=== PATIENT | female | born 1940 | race Caucasian/White ===

== ENCOUNTER → 2017-01-11 | Outpatient (CLI) | payer BC ==
[~2017-01-11] MED LIST: AMLO2.5T PO; AMT25 PO; AMX500 PO; ASPCH81X PO; ATOR-22 PO; CHOL20005 PO; CHON150C PO; DVN80 PO; GLUC10007 PO; GLUC1CAP35 PO; METO25TA3 PO; MIRO OPB; POLYSOL4 OP; RALO60TA30 PO
[2017-01-11 15:07] LABS: BLOOD UREA NITROGEN 16 mg/dl (7-18); CREATININE 0.71 mg/dl (0.60-1.20)
== END | disposition home or self-care (01) ==
LOC: C.LABBC 10:20
PROVIDERS: ATTEND Psychiatry & Neurology Neurology
DX: G51.8 Other disorders of facial nerve (principal); Z01.812 Encounter for preprocedural laboratory examination

== ENCOUNTER → 2017-01-13 | Outpatient (CLI) | payer BC ==
[~2017-01-13] MED LIST changes: +GADAVIST IV PRN
--- NOTE | 2017-01-13 11:57 | DIAGNOSTIC IMAGING REPORT ---
MRI brain BRAIN COMBO FOR TRIGEMINAL CLINICAL HISTORY: Trigeminal; facial NEURALGIA TECHNIQUE: Multi axial MRI acquisition COMPARISON STUDY: None FINDINGS: Moderate chronic small vessel change of aging. No evidence for an acute ischemic insult. No significant postcontrast enhancement. Ventricular system is midline. Basal cisterns are within normal limits. Sella and parasellar region are unremarkable. Internal auditory canals are unremarkable. IMPRESSION: Negative study for age. Mild chronic small vessel change of aging. Electronically signed by: Arash Schwarz M.D. 01/13/2017 11:55 AM Dictated Date/Time: 01/13/2017 11:40 AM
== END | disposition home or self-care (01) ==
LOC: C.MRIBC 10:21
PROVIDERS: ATTEND Psychiatry & Neurology Neurology
DX: G51.8 Other disorders of facial nerve (principal)

== ENCOUNTER → 2017-02-01 | Outpatient (CLI) | payer BC ==
[~2017-02-01] MED LIST changes: -GADAVIST IV PRN
[2017-02-01 10:50] LABS: URINE APPEARANCE CLEAR (CLEAR); URINE BILIRUBIN NEG (NEG); URINE COLOR YELLOW; URINE NITRITE NEG (NEG); UROBILINOGEN NEG (NEG)
[2017-02-01 11:10] LABS: MANUAL MICROSCOPIC REQUIRED? NO; REVIEW REQ? NO
[2017-02-07 13:10] LABS: ANTI-CENTROMERE AB <1.0 NEG AI (<1.0 NEG); ANTI-SS-A <1.0 NEG AI (<1.0 NEG); ANTI-SS-B <1.0 NEG AI (<1.0 NEG); DNA ds CRITHIDIA NEGATIVE (NEGATIVE); Sm Antibody <1.0 NEG AI (<1.0 NEG)
== END | disposition home or self-care (01) ==
LOC: C.LAB1850 09:11
PROVIDERS: ATTEND Internal Medicine Rheumatology
DX: G51.8 Other disorders of facial nerve (principal); R23.2 Flushing; G57.02 Lesion of sciatic nerve, left lower limb; R76.8 Other specified abnormal immunological findings in serum

== ENCOUNTER → 2017-04-27 | Day surgery (SDC) | payer BC ==
[2017-04-08 09:15] VITALS: Ht 154.9 cm; Wt 64.8 kg
[~2017-04-27] VITALS: Ht 154.9 cm; Wt 64.8 kg
[~2017-04-27] MED LIST changes: +500ML BSS 0.3ML EPI 1:1000PF IRRIG ONE; +ACETAMINOPHEN 325 MG TAB PO PRN; -AMT25 PO; +AMVISC PLUS 0.8ML SYRINGE INT OCU ONE; -AMX500 PO; +ATROPINE SULFATE 0.1 MG/ML 5ML SYR IV PRN; +AcetaZOLAMIDE 250 MG TAB PO SCH; +BETAXOLOL HCL 0.25% OP SUSP PER DROP CHARGE OPR SCH; +BRIMONIDINE TART 0.2% OP SOLN PER DROP CHARGE ONE; +BSS FLUSH ONE; -CHON150C PO; -DVN80 PO; +ENDOCOAT 0.85ML SYRINGE INT OCU ONE; +EpHEDrine SULFATE INJ 50 MG/ML AMP IV PRN; +EpINEphrine INJ 1MG/ML AMP 1 MG/ML AMP ONE; -GLUC10007 PO; +LACTATED RINGER'S 1000ML 500 ML IV SCH; +LIDOCAINE 4% OP SOLN DROP CHARGE ONE; +LIDOCAINE 4% OP SOLN DROP CHARGE OPR SCH; +LIDOCAINE HCL 1% MPF 2 ML VIAL ONE; +MIDAZOLAM HCL 1 MG/ML 2ML VIAL ONE; +MIX: 4ML BSS 1ML EPI 1:1000 PF INSTIL ONE; +MOXIFLOXACIN OPH SOLN PER DROP CHARGE ONE; +OCUCOAT 1 ML SOLN IO ONE; +POVIDONE-IODINE OP SOLN 30 ML BTL ONE; +PROPARACAINE 0.5% OP SOLN PER DROP CHARGE OPR SCH; +RALO60TA12 PO; -RALO60TA30 PO; +TOBRAMYCIN/DEXAMETHASONE OPH OINT PER APPLN CHARGE ONE
[2017-04-27] MEDS: PHENYLEPHRINE HCL 2.5% OP SOLN PER DROP CHARGE OPR SCH ×2 (07:21→07:26)
[2017-04-27] MEDS: CYCLOPENTOLATE HCL 1% OP SOLN PER DROP CHARGE OPR SCH ×2 (07:22→07:29)
[2017-04-27] MEDS: TROPICAMIDE 1% OP SOLN PER DROP CHARGE OPR SCH ×2 (07:22→07:28)
[2017-04-27] MEDS: MOXIFLOXACIN OPH SOLN PER DROP CHARGE OPR SCH ×2 (07:23→07:29)
--- NOTE | 2017-04-27 07:33 | History & Physical Bridge - SC ---
H&P Re-Evaluation Bridge Note: I have examined the patient, reviewed the History & Physical and in the interval since the performance of the History & Physical I have noted the following changes of clinical significance: No changes noted
--- NOTE | 2017-04-27 08:21 | Discharge Instructions-SurgCtr ---
Discharge Instructions Date of Service Apr 27, 2017. Visit Reason for Visit: Right Cataract Discharge Discharge Diagnosis / Problem: lens implant right eye Discharge Goals Goal(s): Improve function Activity Recommendations Activity Limitations: resume your previous activity Lifting Limitations: no more than 10 pounds Exercise/Sports Limitations: gradually increase as tolerated May Resume Sexual Activity: when tolerated Shower/Bathe: tomorrow Driving or Machine Use: resume 1 day after discharge Anesthesia . Post Anesthesia Instructions: If you have had General Anesthesia or IV Sedation: * Do not drive today. * Resume driving when surgeon permits. * Do not make important decisions or sign legal documents today. * Call surgeon for: 1. Temperature elevations greater than 101 degrees F. 2. Uncontrollable pain. 3. Excessive bleeding. 4. Persistent nausea and vomiting. 5. Medication intolerance (nausea, vomiting or rash). * For nausea and vomiting use only clear liquids such as: tea, soda, bouillon until nausea subsides, then gradually increase diet as tolerated. * If you have any concerns or questions, call your surgeon's office. If physician is unavailable and it is an emergency, call 911 or go to the nearest emergency room. . Instructions / Follow-Up Instructions / Follow-Up ACTIVITY RECOMMENDATIONS: * Light activities. * Mild irritation and blurred vision are common for the first few days. * You may walk outside, read, watch television. * Redness around the white part of the eye is common. MEDICATIONS: Resume previous medications unless instructed otherwise by your surgeon. * Take white Diamox (Acetazolamide) tablet at 1 pm today. Start all eye drops at 1 pm today: * Eye drops (today and tomorrow): Durezol - one drop in operative eye every 3 hours while awake Ofloxacin - one drop in operative eye every 3 hours while awake SPECIAL CARE INSTRUCTIONS: * Tape plastic shield over eye to sleep at night. Call your doctor at with any concerns or problems. FOLLOW UP VISIT: Follow-up with Dr Larsen at [facility] office as scheduled. Diet Recommendations Home Diet: no limitations Procedures Procedures Performed: cataract extraction with lens implant Pending Studies Studies pending at discharge: no Medical Emergencies . Who to Call and When: Medical Emergencies: If at any time you feel your situation is an emergency, please call 911 immediately. . Non-Emergent Contact Non-Emergency issues call your: [employer] Developer Call Non-Emergent contact if: your pain is not controlled [phone] . . "Provider Documentation" section prepared by Jesus Larsen. .
--- NOTE | 2017-04-27 08:23 | [facility] Operative Report ---
Operative Report Date of Service Apr 27, 2017. Operative Report 1. PREOPERATIVE DIAGNOSIS: Senile nuclear cataract, right eye. 2. POSTOPERATIVE DIAGNOSIS: Senile nuclear cataract, right eye. 3. PROCEDURE: Phacoemulsification of right cataract with posterior chamber lens implant, type [employer], model MX60, power +19.0 diopters. ANESTHESIA: Local standby. SURGEON: Dr. Larsen. COMPLICATIONS: None. OPERATING TIME: 10 minutes. 4. OPERATION AND FINDINGS: DESCRIPTION OF PROCEDURE: The right pupil was dilated. The anesthetic was administered using a topical technique. The right eye was prepped and draped. A speculum was placed. A clear corneal incision was formed. The chamber was filled with Amvisc Plus and Endocoat. Epinephrine solution was used. A paracentesis was placed. A capsulorrhexis was performed. The nucleus was hydrodissected. The lens was removed with phacoemulsification. Time was 2.30 seconds. The aspiration unit was used to remove the cortex. The capsule was filled with Amvisc Plus. The lens implant was folded and placed into the capsule. The incision was hydrated. The Amvisc was aspirated. The wound was secure. The chamber was deep. The pupil was round. Brimonidine, TobraDex ointment and Vigamox solution were placed. The speculum was removed. The patient was returned to the Recovery Room in stable condition. I attest to the content of the Intraoperative Record and any orders documented therein. Any exceptions are noted below. The scribe's documentation has been prepared in my presence, under my direction and personally reviewed by me in its entirety. I confirm that the note above accurately reflects all work, treatment, procedures, and medical decision making performed by me. I personally scribed for Jesus Larsen M.D. ([email or web address]) on 04/27/17 at 08:23. Electronically submitted by Aundrea Lambert ([email or web address]).
[2017-04-27 08:25] VITALS: TEMP 36.4
[2017-04-27 08:45] VITALS: BP 130/79; PULSE 66; O2SAT 97
--- NOTE | 2017-04-27 08:45 | Anesthesia Progress Nt - [facility] ---
Anesthesia Post Op Note Date & Time Apr 27, 2017 at 08:45 Vital Signs Pain Intensity: 0 Vital Signs Past 12 Hours Date Time Temp Pulse Resp B/P (MAP) Pulse Ox O2 Delivery O2 Flow Rate FiO2 04/27/17 08:25 36.4 66 16 120/74 (89) 96 Room Air 04/27/17 07:07 36.4 69 16 158/83 (108) 95 Room Air Notes Mental Status: alert / awake / arousable, participated in evaluation Pt Amnestic to Procedure: Yes Nausea / Vomiting: adequately controlled Pain: adequately controlled Airway Patency, RR, SpO2: stable & adequate BP & HR: stable & adequate Hydration State: stable & adequate Anesthetic Complications: no major complications apparent
== END | disposition home or self-care (01) ==
LOC: X.SURG 06:51
PROVIDERS: ATTEND Specialist
DX: H25.11 Age-related nuclear cataract, right eye (principal); I10 Essential (primary) hypertension; E78.00 Pure hypercholesterolemia, unspecified; Z90.49 Acquired absence of other specified parts of digestive tract; Z98.42 Cataract extraction status, left eye; E78.5 Hyperlipidemia, unspecified

== ENCOUNTER → 2017-09-30 | Outpatient (CLI) | payer BC ==
[~2017-09-30] MED LIST changes: -500ML BSS 0.3ML EPI 1:1000PF IRRIG ONE; -ACETAMINOPHEN 325 MG TAB PO PRN; -AMVISC PLUS 0.8ML SYRINGE INT OCU ONE; -ATROPINE SULFATE 0.1 MG/ML 5ML SYR IV PRN; -AcetaZOLAMIDE 250 MG TAB PO SCH; -BETAXOLOL HCL 0.25% OP SUSP PER DROP CHARGE OPR SCH; -BRIMONIDINE TART 0.2% OP SOLN PER DROP CHARGE ONE; -BSS FLUSH ONE; -ENDOCOAT 0.85ML SYRINGE INT OCU ONE; -EpHEDrine SULFATE INJ 50 MG/ML AMP IV PRN; -EpINEphrine INJ 1MG/ML AMP 1 MG/ML AMP ONE; +GLUC750C4 PO; -LACTATED RINGER'S 1000ML 500 ML IV SCH; -LIDOCAINE 4% OP SOLN DROP CHARGE ONE; -LIDOCAINE 4% OP SOLN DROP CHARGE OPR SCH; -LIDOCAINE HCL 1% MPF 2 ML VIAL ONE; -METO25TA3 PO; +METO25TA4 PO; -MIDAZOLAM HCL 1 MG/ML 2ML VIAL ONE; -MIX: 4ML BSS 1ML EPI 1:1000 PF INSTIL ONE; -MOXIFLOXACIN OPH SOLN PER DROP CHARGE ONE; -OCUCOAT 1 ML SOLN IO ONE; -POVIDONE-IODINE OP SOLN 30 ML BTL ONE; -PROPARACAINE 0.5% OP SOLN PER DROP CHARGE OPR SCH; -RALO60TA12 PO; +RALO60TA30 PO; -TOBRAMYCIN/DEXAMETHASONE OPH OINT PER APPLN CHARGE ONE
--- NOTE | 2017-10-04 13:38 | MAMMOGRAPHY REPORT ---
BILATERAL DIGITAL SCREENING MAMMOGRAM WITH CAD: 09/30/2017 CLINICAL HISTORY: Routine screening. Patient has no complaints. TECHNIQUE: Current study was also evaluated with a Computer Aided Detection (CAD) system. Bilateral CC and MLO views were obtained. COMPARISON: Comparison is made to exams dated: 09/29/2016 mammogram, 09/16/2015 mammogram, 4 mammogram, 07/16/2013 mammogram, 07/13/2012 mammogram, and 06/28/2011 mammogram - [facility]. BREAST COMPOSITION: There are scattered areas of fibroglandular density in both breasts. FINDINGS: No suspicious masses, calcifications, or areas of architectural distortion are noted in ei ther breast. There has been no significant interval change compared to prior exams. Bilateral asymme tries and bilateral benign-appearing calcifications are not significantly changed. IMPRESSION: ACR BI-RADS CATEGORY 2: BENIGN There is no mammographic evidence of malignancy. A 1 year screening mammogram is recommended. The pa tient will receive written notification of the results. Approximately 10% of breast cancers are not detected with mammography. A negative mammographic report should not delay biopsy if a clinically suggestive mass is present. Veronica Vidal M.D. /:09/30/2017 12:26:17 Disc Recordist: Annika SCHUMACHER)(M), [facility] letter sent: Normal 1/2 BI-RADS Code: ACR BI-RADS Category 2: Benign
== END | disposition home or self-care (01) ==
LOC: C.MAMM 09:06
PROVIDERS: ATTEND Family Medicine
DX: Z12.31 Encounter for screening mammogram for malignant neoplasm of breast (principal)

== ENCOUNTER 2017-10-09 06:05 | Inpatient (IN) | payer BC, OTHER ==
[~2017-10-09] VITALS: Ht 154.9 cm; Wt 63.7 kg
[~2017-10-09 06:05] MED LIST changes: -GLUC750C4 PO; +METO25TA3 PO; -METO25TA4 PO
[2017-10-09] MEDS ORDERED: SODIUM CHLORIDE 0.9% 1000ML 1,000 ML IV STA (06:38)
[2017-10-09] MEDS ORDERED: OPTIRAY 320 IV PRN (06:45)
[2017-10-09] MEDS ORDERED: GLUC750C4 PO (06:49)
[2017-10-09] MEDS ORDERED: GLUC1CAP35 PO (06:51)
[2017-10-09 07:00] LABS: ALBUMIN 3.8 gm/dl (3.4-5.0); CALCIUM 8.7 mg/dl (8.5-10.1); CREATININE 0.66 mg/dl (0.60-1.20); POTASSIUM 3.6 mmol/L (3.5-5.1)
[2017-10-09 07:03] LABS: TOTAL PROTEIN 7.9 gm/dl (6.4-8.2)
[2017-10-09 07:10] LABS: HEMATOCRIT 41.7 % (37-47); HEMOGLOBIN 14.6 g/dL (12.0-16.0); MEAN CELL VOLUME 86.9 fL (80-100); MEAN CORPUSCULAR HEMOGLOBIN 30.4 pg (25-34); PLATELET COUNT 152 K/uL (130-400); RED CELL DISTRIBUTION WIDTH CV 13.1 % (11.5-14.5); RED CELL DISTRIBUTION WIDTH SD 41.7 fL (36.4-46.3)
--- NOTE | 2017-10-09 07:17 | EMERGENCY ROOM VISIT NOTE ---
History Report prepared by Willard: Sergo Elias Under the Supervision of: Dr. Toby Acuña D.O. First contact with patient: 06:26 Chief Complaint: NAUSEA Stated Complaint: LOW SODIUM-BLOOD History of Present Illness The patient is a 77 year old female who presents to the Emergency Room with complaints of persistent nausea for the past 2 days. The patient states that she had a cold earlier last week, and then she began to feel nauseous, shaking, light headed, though she denies the room spinning. She also notes that she is feeling extremely weak. She does feel very lightheaded intermittently. She then got a sodium test, and it was low at 129. The patient states that she has a history of low sodium a year ago, and she had similar symptoms. The patient states that she is not on any diuretics. She has a history of a cholecystectomy and a hysterectomy. Pt denies headache, change in vision, fevers, chest pain, abdominal pain, shortness of breath, vomiting, diarrhea, pain with urination, and melena. Source of History: patient Onset: 2 days ago Position: other (global) Quality: other (nausea) Timing: other (persistent) Associated Symptoms: No abdominal pain Note: Associated symptoms: Light headedness Review of Systems See HPI for pertinent positives & negatives. A total of 10 systems reviewed and were otherwise negative. Past Medical & Surgical Medical Problems: (1) Fatigue (2) Hypertension Family History Cancer Diabetes mellitus Gallbladder disease Social History Smoking Status: Never Smoker Alcohol Use: occasionally Drug Use: none Marital Status: Housing Status: lives with significant other Occupation Status: retired Current/Historical Medications Scheduled Amlodipine (Norvasc), 2.5 MG PO QAM Aspirin (Aspirin Chewable), 81 MG PO QAM Atorvastatin (Lipitor), 40 MG PO QPM Cholecalciferol (Vitamin D3), 2,000 UNITS PO QAM Laiourmpnjq-Nfwongfdyzt-Amg C- (Glucosamine Chondroitin), 1 CAP PO DAILY Metoprolol Succinate (Toprol Xl), 25 MG PO BID Raloxifene Hcl (Evista), 60 MG PO DAILY [Jade 128], 1 DROP OPB UD Scheduled PRN Polyethylene Glycol-Propylene (Systane), 1 DROPS OP QID PRN for DRY EYES Allergies Coded Allergies: NO KNOWN DRUG ALLERGIES (Verified Allergy, Unknown, ., 04/08/17) Physical Exam Vital Signs Date Time Temp Pulse Resp B/P (MAP) Pulse Ox O2 Delivery O2 Flow Rate FiO2 10/09/17 08:07 82 16 138/74 94 Room Air 10/09/17 07:03 76 16 150/64 98 Room Air 10/09/17 06:09 36.5 85 18 148/76 97 Room Air Physical Exam GENERAL: Sitting up in bed, alert, well appearing, well nourished, no distress, non-toxic EYE EXAM: normal conjunctiva. PERRL and EOM's intact. OROPHARYNX: no exudate, no erythema, lips, buccal mucosa, and tongue normal and mucous membranes are moist NECK: supple, no nuchal rigidity, no adenopathy, non-tender LUNGS: Clear to auscultation. Normal chest wall mechanics HEART: no murmurs, S1 normal and S2 normal ABDOMEN: abdomen soft, non-tender, normo-active bowel sounds, no masses, no rebound or guarding. BACK: Back is symmetrical on inspection and there is no deformity, no midline tenderness, no CVA tenderness. SKIN: no rashes and no bruising UPPER EXTREMITIES: upper extremities are grossly normal. LOWER EXTREMITIES: No pitting edema. NEURO EXAM: Normal sensorium, cranial nerves II-XII intact, normal speech, no weakness of arms, no weakness of legs. No drift. Finger to nose intact. Sensation intact. Medical Decision & Procedures ER Provider Diagnostic Interpretation: Radiology results as stated below per my review and the radiologist's interpretation: CT OF THE ABDOMEN AND PELVIS WITH CONTRAST CLINICAL HISTORY: Abdominal pain. COMPARISON STUDY: Abdominal ultrasound September 29, 2016. TECHNIQUE: Following IV administration of 120 mL of Optiray-320, axial images of the abdomen and pelvis were obtained from the lung bases to the proximal femurs. Images were reviewed in the axial, sagittal, and coronal planes. IV contrast was administered without complication. A dose lowering technique was utilized adhering to the principles of ALARA. CT DOSE: 333.48 mGy.cm FINDINGS: A cyst within the left lower lobe is noted. There is moderate coronary artery calcification. The liver, adrenal glands, kidneys and pancreas are unremarkable. There are calcified granulomas within the spleen. There is no significant biliary ductal dilatation status post cholecystectomy. A splenule is noted. There is no hydronephrosis. There is no peripancreatic infiltration. No enlarged abdominal or pelvic lymph nodes are present. There is sigmoid diverticulosis without evidence for acute diverticulitis. The appendix is normal. Apparent mild wall thickening of the ascending colon is likely due to underdistention. There is no pericolonic infiltration. IMPRESSION: 1. No definite acute process within the abdomen or pelvis. Apparent mild wall thickening of the ascending colon is likely due to underdistention. A mild nonspecific colitis could appear similar although is considered less likely. Normal appendix. 2. Sigmoid diverticulosis without evidence for acute diverticulitis. Electronically signed by: Efe Lucas M.D. 10/09/2017 7:55 AM Dictated Date/Time: 10/09/2017 7:47 AM Laboratory Results 10/09/17 06:30 Test 10/09/17 06:30 10/09/17 08:07 RDW Standard Deviation 41.7 fL (36.4-46.3) RDW Coefficient of Variation 13.1 % (11.5-14.5) White Blood Count 2.40 K/uL (4.8-10.8) Red Blood Count 4.80 M/uL (4.2-5.4) Hemoglobin 14.6 g/dL (12.0-16.0) Hematocrit 41.7 % (37-47) Mean Corpuscular Volume 86.9 fL (80-100) Mean Corpuscular Hemoglobin 30.4 pg (25-34) Mean Corpuscular Hemoglobin Concent 35.0 g/dl (32-36) Platelet Count 152 K/uL (130-400) Mean Platelet Volume 10.0 fL (7.4-10.4) Neutrophils (%) (Auto) 38.8 % Lymphocytes (%) (Auto) 35.8 % Monocytes (%) (Auto) 23.8 % Eosinophils (%) (Auto) 0.8 % Basophils (%) (Auto) 0.4 % Neutrophils # (Auto) 0.93 K/uL (1.4-6.5) Lymphocytes # (Auto) 0.86 K/uL (1.2-3.4) Monocytes # (Auto) 0.57 K/uL (0.11-0.59) Eosinophils # (Auto) 0.02 K/uL (0-0.5) Basophils # (Auto) 0.01 K/uL (0-0.2) Immature Granulocyte % (Auto) 0.4 % Immature Granulocyte # (Auto) 0.01 K/uL (0.00-0.02) Anion Gap 9.0 mmol/L (3-11) Est Creatinine Clear Calc Drug Dose 60.0 ml/min Estimated GFR () 98.1 Estimated GFR (Non- 84.6 BUN/Creatinine Ratio 10.6 (10-20) Calcium Level 8.7 mg/dl (8.5-10.1) Total Bilirubin 0.6 mg/dl (0.2-1) Direct Bilirubin 0.1 mg/dl (0-0.2) Aspartate Amino Transf (AST/SGOT) 50 U/L (15-37) Alanine Aminotransferase (ALT/SGPT) 38 U/L (12-78) Alkaline Phosphatase 85 U/L (45-117) Total Protein 7.9 gm/dl (6.4-8.2) Albumin 3.8 gm/dl (3.4-5.0) Lipase 184 U/L (73-393) Urine Color YELLOW Urine Appearance CLEAR (CLEAR) Urine pH 7.5 (4.5-7.5) Urine Specific [place] 1.011 (1.000-1.030) Urine Protein NEG (NEG) Urine Glucose (UA) NEG (NEG) Urine Ketones NEG (NEG) Urine Occult Blood TRACE (NEG) Urine Nitrite POS (NEG) Urine Bilirubin NEG (NEG) Urine Urobilinogen NEG (NEG) Urine Leukocyte Esterase NEG (NEG) Urine WBC (Auto) 1-5 /hpf (0-5) Urine RBC (Auto) 0-4 /hpf (0-4) Urine Hyaline Casts (Auto) 0 /lpf (0-5) Urine Epithelial Cells (Auto) 10-20 /lpf (0-5) Urine Bacteria (Auto) 4+ (NEG) Urine Osmolality 334 mOms/kg (500-800) Urine Random Sodium 128 mEq/L Laboratory results per my review. Medications Administered Medications (Trade) Dose Ordered Sig/Rosa Isela Route Start Time Stop Time Status Last Admin Dose Admin Sodium Chloride 1,000 ml @ 999 mls/hr Q1H1M STAT IV 10/09/17 06:38 10/09/17 07:38 DC 10/09/17 06:43 999 MLS/HR Ondansetron HCl (Zofran Inj) 4 mg NOW STAT IV 10/09/17 07:48 10/09/17 07:49 DC 10/09/17 08:04 4 MG ED Course ED COURSE: Vital signs were reviewed and showed situational hypertension The patients medical record was reviewed The above diagnostic studies were performed and reviewed. ED treatments and interventions as stated above. 0626: The patient was evaluated in room B3. A complete history and physical examination was performed. 0638: Sodium Chloride 1000 ml @ 999 mls/hr IV 0748: Zofran 4mg IV 0905: I reevaluated: Upon reevaluation, the patient is doing well.I discussed my findings with the patient and she understands and agrees with the treatment plan. Based on the patients age, coexisting illnesses, exam and lab findings the decision to treat as an inpatient was made. The patient remained stable while under my care. The patient will be evaluated for further management. 09: I reviewed the patient's case with Dr. Reed. He will evaluate the patient for further management. Medical Decision Differential diagnoses includes but is not limited to gastritis, peptic ulcer disease, GERD, gallbladder disease, pancreatitis, small bowel obstruction, acute coronary syndrome, pericarditis, ischemic bowel, irritable bowel disease, irritable bowel syndrome, appendicitis, diverticulitis, malignancy, hernia, urinary tract infection, torsion, /ectopic , perforation, trauma, infectious. Patient is a 77-year-old female who presents to ER for diffuse weakness associated with lightheadedness. She has a history of hyponatremia with previous sodiums in the low 130s. She was previously admitted and discharged with hyponatremia secondary to HCTZ. Patient's neuro exam is completely intact. She does complain of nausea and unsettling feeling in her abdomen. CBC shows a neutropenia. BMP shows hypernatremia 126. Chloride is low as well. CT abdomen and pelvis was unremarkable. Based on her symptoms she was given IV fluids and Zofran. Case was discussed with internal medicine as I feel her symptoms are related to hyponatremia. Case discussed with internal medicine patient was admitted for neutropenia and hyponatremia. Medication Reconcilliation Current Medication List: was personally reviewed by me Blood Pressure Screening Patient's blood pressure: Elevated blood pressure Monitored by the hospitalist. Consults Time Called: 904 Consulting Physician: Dr. Reed Returned Call: [phone] I reviewed the patient's case with Dr. Reed. He will evaluate the patient for further management. Impression Primary Impression: Hyponatremia Additional Impression: Neutropenia Scribe Attestation The scribe's documentation has been prepared under my direction and personally reviewed by me in its entirety. I confirm that the note above accurately reflects all work, treatment, procedures, and medical decision making performed by me. Departure Information Dispostion Being Evaluated By Hospitalist Referrals Mary Padilla D.O. (PCP) Patient Instructions My [facility] Problem Qualifiers Additional Impression: Neutropenia Neutropenia type: unspecified Qualified Codes: D70.9 - Neutropenia, unspecified
[2017-10-09 07:19] LABS: BASO % 0.4 %; BASO ABS # 0.01 K/uL (0-0.2); EOS % 0.8 %; EOS ABS # 0.02 K/uL (0-0.5); IG# 0.01 K/uL (0.00-0.02); LYMPH % 35.8 %; LYMPH ABS # 0.86 K/uL (1.2-3.4); MONO % 23.8 %; MONO ABS # 0.57 K/uL (0.11-0.59); NEUT % 38.8 %; NEUT ABS # 0.93 K/uL (1.4-6.5)
[2017-10-09] MEDS ORDERED: ONDANSETRON INJ 2 MG/ML 2 ML VIAL IV STA (07:48)
--- NOTE | 2017-10-09 07:57 | DIAGNOSTIC IMAGING REPORT ---
CT OF THE ABDOMEN AND PELVIS WITH CONTRAST CLINICAL HISTORY: Abdominal pain. COMPARISON STUDY: Abdominal ultrasound September 29, 2016. TECHNIQUE: Following IV administration of 120 mL of Optiray-320, axial images of the abdomen and pelvis were obtained from the lung bases to the proximal femurs. Images were reviewed in the axial, sagittal, and coronal planes. IV contrast was administered without complication. A dose lowering technique was utilized adhering to the principles of ALARA. CT DOSE: 333.48 mGy.cm FINDINGS: A cyst within the left lower lobe is noted. There is moderate coronary artery calcification. The liver, adrenal glands, kidneys and pancreas are unremarkable. There are calcified granulomas within the spleen. There is no significant biliary ductal dilatation status post cholecystectomy. A splenule is noted. There is no hydronephrosis. There is no peripancreatic infiltration. No enlarged abdominal or pelvic lymph nodes are present. There is sigmoid diverticulosis without evidence for acute diverticulitis. The appendix is normal. Apparent mild wall thickening of the ascending colon is likely due to underdistention. There is no pericolonic infiltration. IMPRESSION: 1. No definite acute process within the abdomen or pelvis. Apparent mild wall thickening of the ascending colon is likely due to underdistention. A mild nonspecific colitis could appear similar although is considered less likely. Normal appendix. 2. Sigmoid diverticulosis without evidence for acute diverticulitis. Electronically signed by: Efe Lucas M.D. 10/09/2017 7:55 AM Dictated Date/Time: 10/09/2017 7:47 AM
[2017-10-09] MEDS ORDERED: INFLUENZA VIRUS QUAD VACCINE 0.5 ML SYR IM. ONE (09:15)
[2017-10-09] MEDS ORDERED: PNEUMOCOCCAL POLYSACCHARIDES 25 MCG/0.5 ML VIAL/SYR IM. ONE (09:15)
[2017-10-09] MEDS ORDERED: ONDANSETRON INJ 2 MG/ML 2 ML VIAL IV PRN (09:15)
[2017-10-09] MEDS ORDERED: POLYETHYLENE (MIRALAX) 17 GM PACK PO PRN (09:15)
[2017-10-09] MEDS ORDERED: ACETAMINOPHEN 325 MG TAB PO PRN (09:15)
[2017-10-09 09:30] VITALS: O2SAT 94; Ht 154.9 cm; Wt 63.7 kg
[2017-10-09 09:57] VITALS: O2SAT 95
[2017-10-09] MEDS ORDERED: INFLUENZA ADMINISTRATION CHARGE ONE (10:30)
[2017-10-09] MEDS ORDERED: SODIUM CHLORIDE 0.9% 1000ML 1,000 ML IV SCH (10:30)
[2017-10-09] MEDS ORDERED: PNEUMOCOCCAL ADMINISTRATION CHARGE ONE (10:30)
[2017-10-09 10:37] VITALS: BP 117/71; PULSE 91; TEMP 37; O2SAT 96
--- NOTE | 2017-10-09 10:43 | History and Physical ---
History & Physical Date & Time of Service: Oct 09, 2017 at 10:35 Chief Complaint: Hyponatremia Primary Care Physician: Mary Padilla D.O. History of Present Illness this pt presents with weakness and nausea, she is found to have hyponatremia and neutropenia, she has a history of hyponatremia in the past attributed to hydrochlorothiazide, she does not drink excessive water. Earlier in the week she was feeing like she had an URI, and took delsum and tylenol/advil, this improved then developed intermittent diarrhea, then this am presented. No travel or ill contacts, has had flu and pnx immunizations, no history of neutropenia Past Medical/Surgical History Medical Problems: (1) Hypertension Status: Chronic Family History Cancer Diabetes mellitus Gallbladder disease Social History Smoking Status: Never Smoker Drug Use: none Marital Status: Housing status: lives with family Occupational Status: retired Multi-Drug Resistant Organisms History of MDRO: No Allergies Coded Allergies: NO KNOWN DRUG ALLERGIES (Verified Allergy, Unknown, ., 04/08/17) Home Medications Scheduled Amlodipine (Norvasc), 2.5 MG PO QAM Aspirin (Aspirin Chewable), 81 MG PO QAM Atorvastatin (Lipitor), 40 MG PO QPM Cholecalciferol (Vitamin D3), 2,000 UNITS PO QAM Qhvscecxfnv-Bgcawxidpnp-Asq C- (Glucosamine Chondroitin), 1 CAP PO DAILY Metoprolol Succinate (Toprol Xl), 25 MG PO BID Raloxifene Hcl (Evista), 60 MG PO DAILY [Jade 128], 1 DROP OPB UD Scheduled PRN Polyethylene Glycol-Propylene (Systane), 1 DROPS OP QID PRN for DRY EYES Review of Systems Constitutional: + weakness, + fatigue, No fever, No chills Eyes: No worsening of vision, No eye pain ENT: + nasal symptoms, + sore throat, + problem reported (dry mouth), No hearing loss, No unusual epistaxis Respiratory: No cough, No sputum, No wheezing Cardiovascular: No chest pain, No orthopnea, No PND Abdomen: + nausea, + diarrhea, No pain, No vomiting, No constipation Musculoskeletal: No joint pain, No muscle pain Genitourinary - Female: No dysuria, No urinary frequency Neurologic: + weakness, + balance problems, No memory loss, No paralysis Psychiatric: No depression symptoms, No anhedonism Endocrine: No fatigue, No excessive thirst Hematologic / Lymphatic: No abnormal bleeding/bruising, No clotting problems Integumentary: No rash, No itch Physical Exam Vital Signs Date Time Temp Pulse Resp B/P (MAP) Pulse Ox O2 Delivery O2 Flow Rate FiO2 10/09/17 09:57 83 16 142/74 95 10/09/17 09:30 94 Room Air 10/09/17 08:07 82 16 138/74 94 Room Air 10/09/17 07:03 76 16 150/64 98 Room Air 10/09/17 06:09 36.5 85 18 148/76 97 Room Air General Appearance: + mild distress, + thin Head: normocephalic, atraumatic Eyes: normal inspection, PERRL, EOMI, sclerae normal ENT: hearing grossly normal, pharynx normal Neck: supple, no adenopathy, no JVD, trachea midline Respiratory/Chest: chest non-tender, lungs clear, normal breath sounds Cardiovascular: regular rate, rhythm, no murmur Abdomen/GI: normal bowel sounds, non tender, soft, no organomegaly Back: no CVA tenderness, no muscle spasm Extremities/Musculoskelatal: no pedal edema, normal range of motion Neurologic/Psych: alert, oriented x 3 Skin: normal color, warm/dry Diagnostics Laboratory Results Results Past 24 Hours Test 10/09/17 06:30 10/09/17 08:07 10/09/17 10:22 Range/Units White Blood Count 2.40 4.8-10.8 K/uL Red Blood Count 4.80 4.2-5.4 M/uL Hemoglobin 14.6 12.0-16.0 g/dL Hematocrit 41.7 37-47 % Mean Corpuscular Volume 86.9 80-100 fL Mean Corpuscular Hemoglobin 30.4 25-34 pg Mean Corpuscular Hemoglobin Concent 35.0 32-36 g/dl Platelet Count 152 130-400 K/uL Mean Platelet Volume 10.0 7.4-10.4 fL Neutrophils (%) (Auto) 38.8 % Lymphocytes (%) (Auto) 35.8 % Monocytes (%) (Auto) 23.8 % Eosinophils (%) (Auto) 0.8 % Basophils (%) (Auto) 0.4 % Neutrophils # (Auto) 0.93 1.4-6.5 K/uL Lymphocytes # (Auto) 0.86 1.2-3.4 K/uL Monocytes # (Auto) 0.57 0.11-0.59 K/uL Eosinophils # (Auto) 0.02 0-0.5 K/uL Basophils # (Auto) 0.01 0-0.2 K/uL RDW Standard Deviation 41.7 36.4-46.3 fL RDW Coefficient of Variation 13.1 11.5-14.5 % Immature Granulocyte % (Auto) 0.4 % Immature Granulocyte # (Auto) 0.01 0.00-0.02 K/uL Sodium Level 126 136-145 mmol/L Potassium Level 3.6 3.5-5.1 mmol/L Chloride Level 91 98-107 mmol/L Carbon Dioxide Level 26 21-32 mmol/L Anion Gap 9.0 3-11 mmol/L Blood Urea Nitrogen 7 7-18 mg/dl Creatinine 0.66 0.60-1.20 mg/dl Est Creatinine Clear Calc Drug Dose 60.0 ml/min Estimated GFR () 98.1 Estimated GFR (Non- 84.6 BUN/Creatinine Ratio 10.6 10-20 Random Glucose 108 70-99 mg/dl Calcium Level 8.7 8.5-10.1 mg/dl Total Bilirubin 0.6 0.2-1 mg/dl Direct Bilirubin 0.1 0-0.2 mg/dl Aspartate Amino Transf (AST/SGOT) 50 15-37 U/L Alanine Aminotransferase (ALT/SGPT) 38 12-78 U/L Alkaline Phosphatase 85 45-117 U/L Total Protein 7.9 6.4-8.2 gm/dl Albumin 3.8 3.4-5.0 gm/dl Lipase 184 73-393 U/L Urine Color YELLOW Urine Appearance CLEAR CLEAR Urine pH 7.5 4.5-7.5 Urine Specific [place] 1.011 1.000-1.030 Urine Protein NEG NEG Urine Glucose (UA) NEG NEG Urine Ketones NEG NEG Urine Occult Blood TRACE NEG Urine Nitrite POS NEG Urine Bilirubin NEG NEG Urine Urobilinogen NEG NEG Urine Leukocyte Esterase NEG NEG Urine WBC (Auto) 1-5 0-5 /hpf Urine RBC (Auto) 0-4 0-4 /hpf Urine Hyaline Casts (Auto) 0 0-5 /lpf Urine Epithelial Cells (Auto) 10-20 0-5 /lpf Urine Bacteria (Auto) 4+ NEG Microbiology Results 10/09/17 Urine Culture, Received Pending Diagnostic Radiology Ct of abd pelvis : IMPRESSION: 1. No definite acute process within the abdomen or pelvis. Apparent mild wall thickening of the ascending colon is likely due to underdistention. A mild nonspecific colitis could appear similar although is considered less likely. Normal appendix. 2. Sigmoid diverticulosis without evidence for acute diverticulitis. Impression Assessment and Plan 77 F with hyponatremia and ill feeling, incidental noted neutropenia Hyponatremia, will check urine sodium and osm urine specific gravity is more toward the dilute side suggesting possible siadh, fluid restrict neutropenia, likely post viral, will recheck and follow htn, will continue metoprolol and norvasc secondary cardio and cerebrovascular risk prevention continue aspirin and atorvastatin DVT prevention is heparin Advanced Directives Existing Living Will: Yes Existing Power of Spool Worker: Yes VTE Prophylaxis VTE Risk Assessment Done? Y/N: Yes Risk Level: Moderate
[2017-10-09 10:47] LABS: PTT PATIENT 29.2 SECONDS (21.0-31.0)
[2017-10-09] MEDS: HEPARIN SOD 5000 UNIT/0.5 ML CARP SQ SCH ×2 (11:00→21:02)
[2017-10-09 13:22] LABS: HEMATOCRIT 39.7 % (37-47); HEMOGLOBIN 13.6 g/dL (12.0-16.0); IG# 0.01 K/uL (0.00-0.02); LYMPH % 36.1 %; LYMPH ABS # 0.82 K/uL (1.2-3.4); MEAN CELL VOLUME 87.1 fL (80-100); MEAN CORPUSCULAR HEMOGLOBIN 29.8 pg (25-34); MEAN CORPUSCULAR HGB CONC 34.3 g/dl (32-36); MEAN PLATELET VOLUME 10.1 fL (7.4-10.4); MONO % 19.4 %; MONO ABS # 0.44 K/uL (0.11-0.59); NEUT % 44.1 %; PLATELET COUNT 153 K/uL (130-400); RED CELL DISTRIBUTION WIDTH CV 12.9 % (11.5-14.5); RED CELL DISTRIBUTION WIDTH SD 41.2 fL (36.4-46.3); WHITE BLOOD COUNT 2.27 K/uL (4.8-10.8)
[2017-10-09 15:36] VITALS: BP 118/69; PULSE 82; TEMP 37; O2SAT 96
[2017-10-09 20:55] VITALS: BP 145/73; PULSE 80
[2017-10-09] MEDS: METOPROLOL SUCC 25MG EXT REL TAB PO SCH (20:55)
[2017-10-09] MEDS ORDERED: ATORVASTATIN 40 MG TAB PO SCH (21:00)
[2017-10-09 23:24] VITALS: BP 128/75; PULSE 74; TEMP 36.8; O2SAT 95
[2017-10-10 07:14] LABS: BASO % 0.5 %; BASO ABS # 0.02 K/uL (0-0.2); EOS % 0.5 %; EOS ABS # 0.02 K/uL (0-0.5); HEMATOCRIT 39.9 % (37-47); HEMOGLOBIN 13.7 g/dL (12.0-16.0); IG# 0.01 K/uL (0.00-0.02); LYMPH ABS # 1.48 K/uL (1.2-3.4); MEAN CELL VOLUME 87.9 fL (80-100); MEAN CORPUSCULAR HEMOGLOBIN 30.2 pg (25-34); MEAN CORPUSCULAR HGB CONC 34.3 g/dl (32-36); MEAN PLATELET VOLUME 10.2 fL (7.4-10.4); MONO % 18.6 %; MONO ABS # 0.69 K/uL (0.11-0.59); NEUT % 40.1 %; NEUT ABS # 1.48 K/uL (1.4-6.5); PLATELET COUNT 151 K/uL (130-400); RED CELL DISTRIBUTION WIDTH CV 13.2 % (11.5-14.5); RED CELL DISTRIBUTION WIDTH SD 42.4 fL (36.4-46.3)
[2017-10-10 07:40] LABS: CALCIUM 8.3 mg/dl (8.5-10.1); CREATININE 0.73 mg/dl (0.60-1.20); POTASSIUM 3.9 mmol/L (3.5-5.1)
[2017-10-10 07:50] VITALS: BP 119/69; PULSE 76; TEMP 37; O2SAT 93
[2017-10-10] MEDS: METOPROLOL SUCC 25MG EXT REL TAB PO SCH (08:45)
[2017-10-10] MEDS: HEPARIN SOD 5000 UNIT/0.5 ML CARP SQ SCH (08:47)
[2017-10-10] MEDS ORDERED: ASPIRIN 81 MG ECTAB PO SCH (09:00)
[2017-10-10] MEDS ORDERED: AMLODIPINE BESYLATE 5 MG TAB PO SCH (09:00)
--- NOTE | 2017-10-10 13:46 | Medical Student: [facility] ---
Med Student Progress Note Date of Service Oct 10, 2017. Subjective Pt evaluation today including: conversation w/ patient Voiding: no voiding problems Patient is a 77 year old female who presented to the ED yesterday with complaints of fatigue, feeling weak, lightheadedness, and persistent nausea for the past 2-3 days. She had a cold for the past week. She also had some diarrhea during that time. She also stated that she did not have an appetite and that this was very noticeable and unusual for her She did drink fluids during this time. Half a week ago she was becoming concerned that her symptoms could be related to hyponatremia, as she had similar symptoms on one other occasion where she had 1 prior episode of hyponatremia that required hospitalization. Today, she says she feels much better. She is able to ambulate freely around the room and halls. She does not feel dizzy and she also feels strong (strong enough to walk freely)- not like the weakness she described from her HPI. Review of Systems Eyes: No worsening of vision, No diplopia Respiratory: No cough, No shortness of breath, No dyspnea at rest Abdomen: No nausea, No vomiting, No diarrhea Musculoskeletal: No joint pain, No muscle pain Neurologic: No memory loss, No weakness, No vertigo, No balance problems Endo: No fatigue Objective Vital Signs Date Time Temp Pulse Resp B/P (MAP) Pulse Ox O2 Delivery O2 Flow Rate FiO2 10/10/17 09:12 Room Air 10/10/17 07:50 37.0 76 18 119/69 (86) 93 Room Air 10/10/17 00:00 Room Air 10/09/17 23:24 36.8 74 20 128/75 (92) 95 Room Air 10/09/17 20:55 80 145/73 (97) 10/09/17 16:00 Room Air 10/09/17 15:36 37.0 82 16 118/69 (85) 96 Room Air Physical Exam General Appearance: no apparent distress, + thin Eyes: bilateral eyes normal inspection ENT: normal ENT inspection, hearing grossly normal, pharynx normal Neck: supple, trachea midline Respiratory/Chest: no respiratory distress, no accessory muscle use Cardiovascular: no edema, no JVD Extremities: normal inspection, no pedal edema Neurologic/Psychiatric: no motor/sensory deficits, alert, normal mood/affect Skin: normal color, no rash Laboratory Results Last 24 Hours Test 10/10/17 06:43 White Blood Count 3.70 K/uL Red Blood Count 4.54 M/uL Hemoglobin 13.7 g/dL Hematocrit 39.9 % Mean Corpuscular Volume 87.9 fL Mean Corpuscular Hemoglobin 30.2 pg Mean Corpuscular Hemoglobin Concent 34.3 g/dl Platelet Count 151 K/uL Mean Platelet Volume 10.2 fL Neutrophils (%) (Auto) 40.1 % Lymphocytes (%) (Auto) 40.0 % Monocytes (%) (Auto) 18.6 % Eosinophils (%) (Auto) 0.5 % Basophils (%) (Auto) 0.5 % Neutrophils # (Auto) 1.48 K/uL Lymphocytes # (Auto) 1.48 K/uL Monocytes # (Auto) 0.69 K/uL Eosinophils # (Auto) 0.02 K/uL Basophils # (Auto) 0.02 K/uL RDW Standard Deviation 42.4 fL RDW Coefficient of Variation 13.2 % Immature Granulocyte % (Auto) 0.3 % Immature Granulocyte # (Auto) 0.01 K/uL Sodium Level 132 mmol/L Potassium Level 3.9 mmol/L Chloride Level 98 mmol/L Carbon Dioxide Level 28 mmol/L Anion Gap 6.0 mmol/L Blood Urea Nitrogen 8 mg/dl Creatinine 0.73 mg/dl Est Creatinine Clear Calc Drug Dose 54.3 ml/min Estimated GFR () 91.4 Estimated GFR (Non- 78.9 BUN/Creatinine Ratio 10.6 Random Glucose 85 mg/dl Calcium Level 8.3 mg/dl Date/Time Source Procedure Growth Status 10/09/17 08:07 Urine , Clean Catch Urine Culture - Preliminary Gram Negative Bacilli Resulted Medications Current Inpatient Medications Medications (Trade) Dose Ordered Sig/Rosa Isela Route Start Time Stop Time Status Last Admin Dose Admin Ioversol (Optiray 320) 100 ml UD PRN IV 10/09/17 06:45 10/13/17 06:44 Acetaminophen (Tylenol Tab) 650 mg Q4H PRN PO 10/09/17 09:15 11/08/17 09:14 Polyethylene (Miralax Powder Packet) 17 gm DAILY PRN PO 10/09/17 09:15 11/08/17 09:14 Ondansetron HCl (Zofran Inj) 4 mg Q6H PRN IV 10/09/17 09:15 11/08/17 09:14 Heparin Sodium (Porcine) (Heparin Sq 5000 Unit/0.5ml) 5,000 unit Q12 SQ 10/09/17 11:00 11/08/17 10:59 10/10/17 08:47 5,000 UNIT Amlodipine Besylate (Norvasc Tab) 2.5 mg QAM PO 10/10/17 09:00 11/09/17 08:59 10/10/17 08:46 2.5 MG Aspirin (Ecotrin Tab) 81 mg QAM PO 10/10/17 09:00 11/09/17 08:59 10/10/17 08:45 81 MG Atorvastatin Calcium (Lipitor Tab) 40 mg QPM PO 10/09/17 21:00 11/08/17 20:59 10/09/17 20:53 40 MG Metoprolol Succinate (Toprol Xl Tab) 25 mg BID PO 10/09/17 21:00 11/08/17 20:59 10/10/17 08:45 25 MG Assessment and Plan Assessment and Plan: Impression: Patient is a 77 year old female who presented to the hospital after a 1 week history of a viral illness and a 2-3 day history of persistent nausea along with feeling weak, lightheaded, and abdominal pain. A/P: SIADH - euvolemic hyponatremia with serum sodium of 126 on admission, and trending up to 132 after fluid restriction and 1 bag 0.9%NaCl -Follow in outpatient setting - will get lab tests for serum sodium and ADH levels later this week before patient goes to [place] for 2 months and is away from her doctors -Patient educated to restrict free water and fluids that do not contain salts. She may drink Gatorade or bullion/broth to maintain electrolyte levels. She may eat salty foods like a bag of chips or mixed nuts for their salt content. Neutropenia -trending upwards -likely due to upper respiratory infection last week -No atypical cells mentioned in the CBC w/diff report -monitor if symptoms don't improve to seek medical attention UTI -urinalysis shows occult blood, urine nitrites, and 4+ bacteria with decreased urine osms. -Urine culture shows 100,000+ CFUs of gram negative bacilli, sensitivities pending -will treat UTI with oral antibiotics in an outpatient setting after sensitivities determined
--- NOTE | 2017-10-10 14:58 | Discharge Instructions ---
Discharge Instructions Date of Service Oct 10, 2017. Admission Reason for Admission: Hyponatremia Discharge Discharge Diagnosis / Problem: hyponatremia Discharge Goals Goal(s): Diagnostic testing, Therapeutic intervention Activity Recommendations Activity Limitations: as noted below Lifting Limitations: gradually increase as tolerated Please limit water intake, consider other liquids please have liberal salt in your diet have blood work done as an outpt on thursday 10/[address] Padilla this week . Current Hospital Diet Patient's current hospital diet: Regular Diet Discharge Diet Recommended Diet: Regular Diet Pending Studies Studies pending at discharge: no Medical Emergencies . Who to Call and When: Medical Emergencies: If at any time you feel your situation is an emergency, please call 911 immediately. . Non-Emergent Contact Non-Emergency issues call your: Primary Care Provider Call Non-Emergent contact if: temperature is above 101, your pain is unusual for you . . "Provider Documentation" section prepared by Elia Reed. . VTE Core Measure Inpt VTE Proph given/why not?: Unfractionated heparin SQ
[2017-10-10 15:42] VITALS: BP 121/72; PULSE 79; TEMP 37.2; O2SAT 94
--- NOTE | 2017-10-10 15:44 | Discharge Summary ---
Discharge Summary Date of Service Oct 10, 2017. Discharge Summary Admission Date: Oct 09, 2017 at 09:16 Discharge Date: Oct 10, 2017 Discharge Disposition: Home Principal Diagnosis: hyponatremia, neutropenia Medication Reconciliation Continued Medications: Amlodipine (Norvasc) 2.5 Mg Tab 2.5 MG PO QAM, TAB Aspirin (Aspirin Chewable) 81 Mg Chew 81 MG PO QAM Atorvastatin (Lipitor) 20 Mg Tab 40 MG PO QPM, TAB Cholecalciferol (Vitamin D3) 2,000 Unit Tab 2000 UNITS PO QAM Lgpdlwbvnfa-Wmobywvriqn-Eqk C- (Glucosamine Chondroitin) 1 Cap Cap 1 CAP PO DAILY Metoprolol Succinate (Toprol Xl) 25 Mg Tabcr 25 MG PO BID, TAB Polyethylene Glycol-Propylene (Systane) 1 Amy Amy 1 DROPS OP QID PRN for DRY EYES, ML Raloxifene Hcl (Evista) 60 Mg Tab 60 MG PO DAILY, TAB [Jade 128] () 1 DROP OPB UD Discharge Exam Review of Systems: Constitutional: No fever, No chills Cardiovascular: No chest pain, No edema Abdomen: No pain, No nausea, No diarrhea Neurologic: No memory loss, No paralysis, No weakness, No numbness/tingling Psychiatric: No depression symptoms, No anhedonism Physical Exam: General Appearance: WD/WN, no apparent distress Respiratory/Chest: chest non-tender, lungs clear, normal breath sounds Cardiovascular: regular rate, rhythm, no murmur Abdomen / GI: normal bowel sounds, non tender, soft Extremities: no pedal edema, normal range of motion Neurologic/Psychiatric: alert, oriented x 3 Skin: normal color, warm/dry, no rash Hospital Course 77 F with hyponatremia and ill feeling, incidental noted neutropenia, check labs 10/12 and follow up with Dr Padilla this week Hyponatremia,markedly elevated urine sodium and low urine osm suggesting possible siadh, will discharge with recommendation with fluid restriction and increased salt intake neutropenia, improved and no longer neutropenic likely post viral, follow up as an outpt htn, continue metoprolol and norvasc secondary cardio and cerebrovascular risk prevention continue aspirin and atorvastatin Total Time Spent: Greater than 30 minutes This includes examination of the patient, discharge planning, medication reconciliation, and communication with other providers. Discharge Instructions Please refer to the electronic Patient Visit Report (Discharge Instructions) for additional information.
[2017-10-10 15:53] VITALS: BP 121/72; PULSE 79; TEMP 37.2; O2SAT 94
== END 2017-10-10 16:07 | disposition home or self-care (01) | DRG 645 ==
LOC: C.EDB 06:07 → C.MS2W 09:16 → ENRESERV 09:26
PROVIDERS: ADMIT Internal Medicine; ATTEND Internal Medicine
DX: E22.2 Syndrome of inappropriate secretion of antidiuretic hormone (principal); D70.3 Neutropenia due to infection; R11.0 Nausea; R19.7 Diarrhea, unspecified; I10 Essential (primary) hypertension; Z79.82 Long term (current) use of aspirin; Z79.810 Long term (current) use of selective estrogen receptor modulators (SERMs); Z79.899 Other long term (current) drug therapy

== ENCOUNTER → 2017-12-22 | Outpatient (CLI) | payer BC ==
[~2017-12-22] MED LIST changes: -METO25TA3 PO; +METO25TA4 PO
[2017-12-22 15:06] LABS: ALBUMIN 3.7 gm/dl (3.4-5.0); BLOOD UREA NITROGEN 17 mg/dl (7-18); CALCIUM 9.1 mg/dl (8.5-10.1); CARBON DIOXIDE 29 mmol/L (21-32); CREATININE 0.71 mg/dl (0.60-1.20); GLUCOSE 84 mg/dl (70-99); POTASSIUM 4.3 mmol/L (3.5-5.1); SODIUM 136 mmol/L (136-145)
[2017-12-22 15:07] LABS: PHOSPHORUS 3.8 mg/dl (2.5-4.9)
== END | disposition home or self-care (01) ==
LOC: C.LAB1850 11:47
PROVIDERS: ATTEND Internal Medicine Nephrology
DX: E87.1 Hypo-osmolality and hyponatremia (principal)

== ENCOUNTER 2022-07-31 06:05 | Inpatient (IN) ==
--- NOTE | 2022-07-31 06:33 | XRay Report ---
XR chest 1V portable CLINICAL HISTORY: Sepsis. COMPARISON STUDY: Chest radiograph September 14, 2016. FINDINGS: Lung volumes are normal. There is no consolidation. Calcified right lower lung granuloma is present There is no pneumothorax or pleural effusion. Cardiac size is normal. Mediastinal contours a re normal. There is no evidence for pulmonary edema. IMPRESSION: No acute cardiopulmonary findings. ACT 112: Negative or not required by law. Electronically signed by: Efe Lucas M.D. 07/31/2022 6:32 AM
[2022-07-31 06:35] LABS: Basophils # (auto) 0.01 K/uL (0-0.2); Basophils % (auto) 0.1 %; Eosinophils # (auto) 0.02 K/uL (0-0.50); Eosinophils % (auto) 0.2 %; Hematocrit (blood only) 41.2 % (34.1-44.9); Hemoglobin 15.2 g/dl (12.0-16.0); Immature Granulocytes # (auto) 0.02 K/uL (0.00-0.02); Immature Granulocytes % (auto) 0.2 %; Lymphocytes # (auto) 0.83 K/uL (1.2-3.4); Lymphocytes % (auto) 9.5 %; Mean Corpuscular Hemoglobin 30.3 pg (25.0-34.0); Mean Corpuscular Hgb Conc 36.9 g/dL (32.0-36.0); Mean Corpuscular Volume 82.1 fL (80.0-100.0); Mean Platelet Volume 10.1 fL (9.4-12.3); Monocytes # (auto) 1.07 K/uL (0.24-0.82); Monocytes % (auto) 12.3 %; Neutrophils # (auto) 6.75 K/uL (1.4-6.5); Neutrophils % (auto) 77.7 %; Platelet Count 195 K/uL (130-400); RDW Coefficient of Variation 11.9 % (11.5-14.5); Red Blood Count 5.02 M/uL (3.93-5.22)
[2022-07-31 06:44] LABS: Prothrombin Time 10.5 Seconds (9.0-12.0)
[2022-07-31] MEDS ORDERED: SODIUM CHLORIDE 0.9% 1000ML 500 ML IV ONE (06:49)
[2022-07-31] MEDS ORDERED: ONDANSETRON INJ 2 MG/ML 2 ML VIAL IV STA (06:53)
--- NOTE | 2022-07-31 06:54 | Emergency Department Note ---
Impression & Plan Acute hyponatremia ADMIT ED Provider Note HPI: The patient is an 81-year-old female who presents the emergency department with a chief complaint of nausea, chills, and generalized weakness, patient states she was diagnosed with COVID-19 via home test this past Tuesday. Patient denies any chest pain or shortness of breath, on my initial assessment the patient is in no acute distress, she does complain of nausea but denies any abdominal pain. On arrival the patient is hemodynamically stable, she is afebrile, she is in no acute distress on my initial assessment. ROS: -GI: Nausea -General: Generalized weakness, recent COVID-19 positive test, chills *10 point review systems was conducted and is otherwise negative unless stated above *Outpatient medications and allergy history reviewed PE: General: Alert HEENT: Normocephalic, trachea midline Eyes: Extraocular eye movement is intact, no scleral erythema Pulmonary: Clear to auscultation bilaterally, no wheezing Cardio: Regular rate and rhythm GI: Abdomen is soft, nontender : No suprapubic tenderness MSK: No evidence of trauma or malformation of the extremities, no edema Skin: No evidence of rash Neuro: Alert, no focal deficits 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 She states she did test positive for COVID- 19 recently via home test. On arrival the patient is in no acute distress. Given her nausea is the main complaint, CT imaging of the abdomen pelvis was obtained that does not show any evidence of acute surgical pathology or bowel obstruction. Lab work shows evidence of hyponatremia 119, also hypochloremia at 81, patient was initially given some IV fluids however when these labs resulted they were held. 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 In addition she has had some nausea and diminished p.o. intake. She does not appear to be clinically fluid overloaded on my exam. Patient also has hypo kalemia 2.8 which was repleted orally. I discussed the above findings with the patient, she is in agreement for admission. [facility] hospitalist service was consulted for admission and th e patient was admitted in stable condition for further care. Diagnosis: 1. COVID-19 infection 2. Hyponatremia 3. Hypochloremia 4. Hypokalemia 5. Nausea 6. Generalized weakness 7. Subjective chills Disposition: Admission Arash Medina, DO Emergency Medicine Past Med/Surg History Social History Smoking Status: Never smoker Feels Safe at Home: Yes Allergies Allergies Allergy/AdvReac Type Severity Reaction Status Date / Time No Known Drug Allergies Allergy Unknown . Verified 04/08/17 09:11 Home Meds Home Medications Medication Instructions Recorded Confirmed ASPIRIN (ASPIRIN CHEWABLE) 81 mg PO QAM ##0 01/07/16 ATORVASTATIN (LIPITOR) 40 mg PO QPM #0 tabs 01/07/16 CHOLECALCIFEROL (VITAMIN D3) 2,000 unit PO QAM ##0 01/07/16 RALOXIFENE HCL (EVISTA) 60 mg PO DAILY #0 tabs 08/22/16 Amlodipine (Norvasc) 2.5 mg PO QAM #0 tabs 04/08/17 ELISA 128 1 drp OPB UD ##0 04/08/17 Metoprolol Succinate (TOPROL XL) 25 mg PO BID #0 tabs 04/08/17 POLYETHYLENE GLYCOL-PROPYLENE 1 drp ophthalmic (eye) QID PRN DRY 04/08/17 (SYSTANE) EYES #0 mL Szhkzbrypoa-Dyzbksbmrwv-Mad C- 1 cap PO DAILY ##0 10/09/17 (Glucosamine Chondroitin) Results & Data (ED) Vital Signs Vital Signs - 24 hr 07/31/22 06:17 07/31/22 06:42 07/31/22 06:24 Temperature 36.8 C Temperature Source Oral Pulse Rate 83 79 83 Pulse Rate from SpO2 Sensor 83 Pulse Rhythm Regular Regular Pulse Strength Normal Respiratory Rate 20 18 31 H Respiratory Effort / Characteristics Non-Labored Spontaneous Respiratory Depth Normal Respiratory Pattern Regular Blood Pressure 168/72 H Blood Pressure Mean 104 Blood Pressure Position Semi-fowlers Pulse Oximetry 97 97 95 Oxygen Delivery Method Room Air Room Air Sepsis Recent Fever Within 48 Hours No Sepsis New/Unexplained Change in Mental Status No Sepsis Action Taken by Nursing No Action Required 07/31/22 06:30 07/31/22 06:30 07/31/22 07:00 Temperature Temperature Source Pulse Rate 79 Pulse Rate from SpO2 Sensor Pulse Rhythm Pulse Strength Respiratory Rate 19 Respiratory Effort / Characteristics Respiratory Depth Respiratory Pattern Blood Pressure 156/73 H 148/77 H Blood Pressure Mean 100 100 Blood Pressure Position Pulse Oximetry Oxygen Delivery Method Sepsis Recent Fever Within 48 Hours Sepsis New/Unexplained Change in Mental Status Sepsis Action Taken by Nursing 07/31/22 07:00 07/31/22 07:30 07/31/22 07:30 Temperature Temperature Source Pulse Rate 80 78 Pulse Rate from SpO2 Sensor 80 Pulse Rhythm Pulse Strength Respiratory Rate 20 20 Respiratory Effort / Characteristics Respiratory Depth Respiratory Pattern Blood Pressure 150/76 H Blood Pressure Mean 100 Blood Pressure Position Pulse Oximetry 94 Oxygen Delivery Method Sepsis Recent Fever Within 48 Hours Sepsis New/Unexplained Change in Mental Status Sepsis Action Taken by Nursing 07/31/22 08:15 07/31/22 08:15 Temperature Temperature Source Pulse Rate 83 Pulse Rate from SpO2 Sensor 84 Pulse Rhythm Pulse Strength Respiratory Rate 19 Respiratory Effort / Characteristics Respiratory Depth Respiratory Pattern Blood Pressure 147/73 H Blood Pressure Mean 97 Blood Pressure Position Pulse Oximetry 97 Oxygen Delivery Method Sepsis Recent Fever Within 48 Hours Sepsis New/Unexplained Change in Mental Status Sepsis Action Taken by Nursing Laboratory Data Result diagrams: 07/31/22 06:23 07/31/22 06:23 Lab Results 07/31/22 07/31/22 07/31/22 Range/Units 06:23 06:23 06:23 WBC 8.70 (4.8-10.8) K/ul RBC 5.02 (3.93-5.22) M/uL Hgb 15.2 (12.0-16.0) g/dl Hct 41.2 (34.1-44.9) % MCV 82.1 (80.0-100.0) fL MCH 30.3 (25.0-34.0) pg MCHC 36.9 H (32.0-36.0) g/dL RDW Std Deviation 36.0 L (36.4-46.3) fL RDW Coeff of Sary 11.9 (11.5-14.5) % Plt Count 195 (130-400) K/uL MPV 10.1 (9.4-12.3) fL Immature Gran % (Auto) 0.2 % Neut % (Auto) 77.7 % Lymph % (Auto) 9.5 % Cow[place] % (Auto) 12.3 % Eos % (Auto) 0.2 % Baso % (Auto) 0.1 % Neut # (Auto) 6.75 H (1.4-6.5) K/uL Lymph # (Auto) 0.83 L (1.2-3.4) K/uL [place]ley # (Auto) 1.07 H (0.24-0.82) K/uL Eos # (Auto) 0.02 (0-0.50) K/uL Baso # (Auto) 0.01 (0-0.2) K/uL Immature Gran # (Auto) 0.02 (0.00-0.02) K/uL PT 10.5 (9.0-12.0) Seconds INR 1.0 (0.9-1.1) Sodium 119 L* (136-145) mmol/L Potassium 2.8 L (3.5-5.1) mmol/L Chloride 81 L (98-107) mmol/L Carbon Dioxide 29 (21-32) mmol/L Anion Gap 9 (3-11) BUN 8 (6-23) mg/dl Creatinine 0.47 L (0.6-1.2) mg/dl Est Cr Clr Drug Dosing 75.3 ml/min Est GFR ( Amer) 106.6 ml/min Est GFR (Non-Af Amer) 92.0 ml/min BUN/Creatinine Ratio 17.0 (10-20) Glucose 138 H (70-99(Fasting)) mg/dl Lactate (0.4-2.0) mmol/L Calcium 8.7 (8.5-10.1) mg/dl Magnesium 1.7 (1.7-2.4) mg/dl Total Bilirubin 1.0 (0.2-1.0) mg/dl Direct Bilirubin 0.2 (0-0.2) mg/dl AST 45 H (13-39) U/L ALT 27 (7-52) U/L Alkaline Phosphatase 65 (34-104) U/L Troponin I High Sens 8.8 (0-14) pg/ml Total Protein 7.5 (6.0-8.3) gm/dl Albumin 4.2 (3.4-5.0) gm/dl Procalcitonin (0-0.5) ng/ml Urine Color Urine Appearance (Clear) Urine pH (4.5-7.5) Ur Specific [place] (1.000-1.030) Urine Protein (Negative) Urine Glucose (UA) (Negative) Urine Ketones (Negative) Urine Blood (Negative) Urine Nitrite (Negative) Urine Bilirubin (Negative) Urine Urobilinogen (Negative) Ur Leukocyte Esterase (Negative) Urine WBC (Auto) (0-5) /hpf Urine RBC (Auto) (0-4) /hpf U Hyaline Cast (Auto) (0-5) /lpf U Epithel Cells (Auto) (0-5) /lpf Urine Bacteria (Auto) (Negative) SARS-CoV-2, RNA, NAAT (NEGATIVE) 07/31/22 07/31/22 07/31/22 Range/Units 06:23 06:55 07:59 WBC (4.8-10.8) K/ul RBC (3.93-5.22) M/uL Hgb (12.0-16.0) g/dl Hct (34.1-44.9) % MCV (80.0-100.0) fL MCH (25.0-34.0) pg MCHC (32.0-36.0) g/dL RDW Std Deviation (36.4-46.3) fL RDW Coeff of Sary (11.5-14.5) % Plt Count (130-400) K/uL MPV (9.4-12.3) fL Immature Gran % (Auto) % Neut % (Auto) % Lymph % (Auto) % [place] % (Auto) % Eos % (Auto) % Baso % (Auto) % Neut # (Auto) (1.4-6.5) K/uL Lymph # (Auto) (1.2-3.4) K/uL [place] # (Auto) (0.24-0.82) K/uL Eos # (Auto) (0-0.50) K/uL Baso # (Auto) (0-0.2) K/uL Immature Gran # (Auto) (0.00-0.02) K/uL PT (9.0-12.0) Seconds INR (0.9-1.1) Sodium (136-145) mmol/L Potassium (3.5-5.1) mmol/L Chloride (98-107) mmol/L Carbon Dioxide (21-32) mmol/L Anion Gap (3-11) BUN (6-23) mg/dl Creatinine (0.6-1.2) mg/dl Est Cr Clr Drug Dosing ml/min Est GFR ( Amer) ml/min Est GFR (Non-Af Amer) ml/min BUN/Creatinine Ratio (10-20) Glucose (70-99(Fasting)) mg/dl Lactate 0.9 (0.4-2.0) mmol/L Calcium (8.5-10.1) mg/dl Magnesium (1.7-2.4) mg/dl Total Bilirubin (0.2-1.0) mg/dl Direct Bilirubin (0-0.2) mg/dl AST (13-39) U/L ALT (7-52) U/L Alkaline Phosphatase (34-104) U/L Troponin I High Sens (0-14) pg/ml Total Protein (6.0-8.3) gm/dl Albumin (3.4-5.0) gm/dl Procalcitonin 0.06 (0-0.5) ng/ml Urine Color Urine Appearance (Clear) Urine pH (4.5-7.5) Ur Specific [place] (1.000-1.030) Urine Protein (Negative) Urine Glucose (UA) (Negative) Urine Ketones (Negative) Urine Blood (Negative) Urine Nitrite (Negative) Urine Bilirubin (Negative) Urine Urobilinogen (Negative) Ur Leukocyte Esterase (Negative) Urine WBC (Auto) (0-5) /hpf Urine RBC (Auto) (0-4) /hpf U Hyaline Cast (Auto) (0-5) /lpf U Epithel Cells (Auto) (0-5) /lpf Urine Bacteria (Auto) (Negative) SARS-CoV-2, RNA, NAAT POSITIVE A* (NEGATIVE) 07/31/22 Range/Units 07:59 WBC (4.8-10.8) K/ul RBC (3.93-5.22) M/uL Hgb (12.0-16.0) g/dl Hct (34.1-44.9) % MCV (80.0-100.0) fL MCH (25.0-34.0) pg MCHC (32.0-36.0) g/dL RDW Std Deviation (36.4-46.3) fL RDW Coeff of Sary (11.5-14.5) % Plt Count (130-400) K/uL MPV (9.4-12.3) fL Immature Gran % (Auto) % Neut % (Auto) % Lymph % (Auto) % [place] % (Auto) % Eos % (Auto) % Baso % (Auto) % Neut # (Auto) (1.4-6.5) K/uL Lymph # (Auto) (1.2-3.4) K/uL [place] # (Auto) (0.24-0.82) K/uL Eos # (Auto) (0-0.50) K/uL Baso # (Auto) (0-0.2) K/uL Immature Gran # (Auto) (0.00-0.02) K/uL PT (9.0-12.0) Seconds INR (0.9-1.1) Sodium (136-145) mmol/L Potassium (3.5-5.1) mmol/L Chloride (98-107) mmol/L Carbon Dioxide (21-32) mmol/L Anion Gap (3-11) BUN (6-23) mg/dl Creatinine (0.6-1.2) mg/dl Est Cr Clr Drug Dosing ml/min Est GFR ( Amer) ml/min Est GFR (Non-Af Amer) ml/min BUN/Creatinine Ratio (10-20) Glucose (70-99(Fasting)) mg/dl Lactate (0.4-2.0) mmol/L Calcium (8.5-10.1) mg/dl Magnesium (1.7-2.4) mg/dl Total Bilirubin (0.2-1.0) mg/dl Direct Bilirubin (0-0.2) mg/dl AST (13-39) U/L ALT (7-52) U/L Alkaline Phosphatase (34-104) U/L Troponin I High Sens (0-14) pg/ml Total Protein (6.0-8.3) gm/dl Albumin (3.4-5.0) gm/dl Procalcitonin (0-0.5) ng/ml Urine Color Yellow Urine Appearance Clear (Clear) Urine pH 7.5 (4.5-7.5) Ur Specific [place] 1.019 (1.000-1.030) Urine Protein 1+ H (Negative) Urine Glucose (UA) Negative (Negative) Urine Ketones 1+ H (Negative) Urine Blood 1+ H (Negative) Urine Nitrite Negative (Negative) Urine Bilirubin Negative (Negative) Urine Urobilinogen Negative (Negative) Ur Leukocyte Esterase Negative (Negative) Urine WBC (Auto) 1-5 (0-5) /hpf Urine RBC (Auto) 5-10 H (0-4) /hpf U Hyaline Cast (Auto) 0 (0-5) /lpf U Epithel Cells (Auto) >30 H (0-5) /lpf Urine Bacteria (Auto) Negative (Negative) SARS-CoV-2, RNA, NAAT (NEGATIVE) Administered Medications Discontinued Medications Sodium Chloride (Nss 1000ml) 500 mls @ 999 mls/hr IV .Q31M ONE Stop: 07/31/22 07:19 Last Infusion: 07/31/22 07:17 Dose: 0 mls/hr Documented By: Admin: 07/31/22 07:12 Dose: 999 mls/hr Documented By: SHWETA Ioversol (Optiray 350 100ml) 90 ml IV ONCE ONE Stop: 07/31/22 07:59 Last Admin: 07/31/22 07:59 Dose: 90 ml Documented By: ARMOND Ondansetron HCl (Ondansetron Inj 2 Mg/Ml 2 Ml Vial) 4 mg IV NOW STA Stop: 07/31/22 06:54 Last Admin: 07/31/22 07:12 Dose: 4 mg Documented By: SHWETA Potassium Chloride (Potassium Chloride Crtab 20 Meq Tabcr) 40 meq PO NOW STA Stop: 07/31/22 07:21 Last Admin: 07/31/22 07:33 Dose: 40 meq Documented By: SHWETA Imaging Data Radiologist's Impression: Chest X-Ray 07/31/22 06:23 XR chest 1V portable CLINICAL HISTORY: Sepsis. COMPARISON STUDY: Chest radiograph September 14, 2016. FINDINGS: Lung volumes are normal. There is no consolidation. Calcified right lower lung granuloma is present There is no pneumothorax or pleural effusion. Cardiac size is normal. Mediastinal contours are normal. There is no evidence for pulmonary edema. IMPRESSION: No acute cardiopulmonary findings. ACT 112: Negative or not required by law. Electronically signed by: Efe Lucas M.D. 07/31/2022 6:32 AM Abdomen/Pelvis CT 07/31/22 06:[address] WITH IV CONTRAST CT DOSE: 264.26 mGy.cm HISTORY: Acute generalized abdominal pain with nausea and vomiting. N/V TECHNIQUE: Multiaxial CT images of the abdomen and pelvis were performed following the IV administration of 90 cc of Optiray, A dose lowering technique was utilized adhering to the principles of ALARA. COMPARISON STUDY: CT abdomen and pelvis 10/09/2017 FINDINGS: Coronary artery calcifications. 2.9 cm thin-walled cystic focus of the basal left lower lobe is unchanged. Clear lung bases. No pneumatosis or pneumoperitoneum. Calcified granulomata of the spleen. Unremarkable adrenal glands. Cholecystectomy. Unremarkable pancreas. The liver is within normal limits. Patency of the hepatic and portal veins. Increased attenuation of the kidneys is symmetric and likely secondary to phase of imaging. Mild nonspecific bilateral perinephric stranding. Unremarkable urinary bladder. Hysterectomy. Atherosclerosis of the aorta without aneurysm. No lymphadenopathy. No bowel obstruction or bowel wall thickening. Colonic diverticulosis without acute diverticulitis. Normal appendix. No ascites or mesenteric inflammation. Unremarkable soft tissues. Degenerative changes of the spine, pelvis and hips. Multilevel central canal and neuroforaminal narrowing of the lumbar spine. Grade 1 anterolisthesis L4 on L5 is likely on a degenerative basis. Lumbar levoscoliosis. IMPRESSION: 1. No acute intra-abdominal or intrapelvic abnormality. 2. No bowel obstruction or bowel wall thickening. Normal appendix. 3. Colonic diverticulosis. 4. Cholecystectomy and hysterectomy. ACT 112: Negative or not required by law. The above report was generated using voice recognition software. It may contain grammatical, syntax or spelling errors. Electronically signed by: Christian Michele M.D. 07/31/2022 8:16 AM Discharge Plan Visit Data Chief Complaint: Nausea Stated Complaint: COVID+/ WEAKNESS/LOWGRADE FEVER ED Provider: Arash Medina Discharge Problem: Acute hyponatremia Forms Stand Alone Forms: My [facility] [employer] Prescriptions Prescriptions: No Action ASPIRIN (ASPIRIN CHEWABLE) 81 MG CHEWABLE TAB 81 mg PO QAM Qty: 0 ATORVASTATIN (LIPITOR) 20 MG tablet 40 mg PO QPM Qty: 0 CHOLECALCIFEROL (VITAMIN D3) 2,000 UNIT tablet 2,000 unit PO QAM Qty: 0 RALOXIFENE HCL (EVISTA) 60 MG tablet 60 mg PO DAILY Qty: 0 Amlodipine (Norvasc) 2.5 MG tablet 2.5 mg PO QAM Qty: 0 Metoprolol Succinate (TOPROL XL) 25 MG LXEBF-CEP-VGB 25 mg PO BID Qty: 0 ELISA 128 1 drp OPB UD Qty: 0 POLYETHYLENE GLYCOL-PROPYLENE (SYSTANE) 1 STEPHEN SOLTAB 1 drp ophthalmic (eye) QID PRN (Reason: DRY EYES) Qty: 0 Inxlygkegmb-Hzhmhtlsxnj-Kvj C- (Glucosamine Chondroitin) 1 CAP capsule 1 cap PO DAILY Qty: 0 Referrals Referrals: Mary Padilla DO [Primary Care Provider] -
[2022-07-31 07:17] LABS: Albumin Level 4.2 gm/dl (3.4-5.0); Bilirubin Direct 0.2 mg/dl (0-0.2); Calcium 8.7 mg/dl (8.5-10.1); Creatinine Clr Calc Pharmacy 75.3 ml/min; Est GFR (African American) 106.6 ml/min; Magnesium 1.7 mg/dl (1.7-2.4); Potassium 2.8 mmol/L (3.5-5.1); Total Protein 7.5 gm/dl (6.0-8.3); Troponin I High Sensitivity 8.8 pg/ml (0-14)
[2022-07-31] MEDS ORDERED: POTASSIUM CHLORIDE CRTAB 20 MEQ TABCR PO STA (07:20)
[2022-07-31] MEDS ORDERED: OPTIRAY 350 100ml IV ONE (07:58)
--- NOTE | 2022-07-31 08:19 | CT Scan Report ---
ABDOMEN AND PELVIS CT WITH IV CONTRAST CT DOSE: 264.26 mGy.cm HISTORY: Acute generalized abdominal pain with nausea and vomiting. N/V TECHNIQUE: Multiaxial CT images of the abdomen and pelvis were performed following the IV administrat ion of 90 cc of Optiray, A dose lowering technique was utilized adhering to the principles of ALARA. COMPARISON STUDY: CT abdomen and pelvis 10/09/2017 FINDINGS: Coronary artery calcifications. 2.9 cm thin-walled cystic focus of the basal left lower lob e is unchanged. Clear lung bases. No pneumatosis or pneumoperitoneum. Calcified granulomata of the sp meera. Unremarkable adrenal glands. Cholecystectomy. Unremarkable pancreas. The liver is within normal limits. Patency of the hepatic and portal veins. Increased attenuation of the kidneys is symmetric and likely secondary to phase of imaging. Mild nons pecific bilateral perinephric stranding. Unremarkable urinary bladder. Hysterectomy. Atherosclerosis of the aorta without aneurysm. No lymphadenopathy. No bowel obstruction or bowel wall thickening. Col onic diverticulosis without acute diverticulitis. Normal appendix. No ascites or mesenteric inflammat ion. Unremarkable soft tissues. Degenerative changes of the spine, pelvis and hips. Multilevel centra l canal and neuroforaminal narrowing of the lumbar spine. Grade 1 anterolisthesis L4 on L5 is likely on a degenerative basis. Lumbar levoscoliosis. IMPRESSION: 1. No acute intra-abdominal or intrapelvic abnormality. 2. No bowel obstruction or bowel wall thickening. Normal appendix. 3. Colonic diverticulosis. 4. Cholecystectomy and hysterectomy. ACT 112: Negative or not required by law. The above report was generated using voice recognition software. It may contain grammatical, syntax o r spelling errors. Electronically signed by: Christian Michele M.D. 07/31/2022 8:16 AM
[2022-07-31 08:21] LABS: Appearance Urine Clear (Clear); Bacteria Urine Automated Negative (Negative); Bilirubin Urine Negative (Negative); Blood Urine 1+ (Negative); Cast Urine Automated 0 /lpf (0-5); Color Urine Yellow; Epithelial Cell Urine Auto >30 /lpf (0-5); Glucose Urine UA Negative (Negative); Ketones Urine 1+ (Negative); Leukocyte Esterase Urine Negative (Negative); Nitrite Urine Negative (Negative); Specific Gravity Urine 1.019 (1.000-1.030); Urobilinogen Urine Negative (Negative); pH Urine 7.5 (4.5-7.5)
[2022-07-31 08:28] LABS: Protein Urine 1+ (Negative)
--- NOTE | 2022-07-31 08:50 | History & Physical Report ---
Date of Service July 31, 2022 Assessment & Plan (1) COVID-19: Plan: Will defer any medications for this given severe hyponatremia and patient is not hypoxic. Stop Paxlovid as unknown if contributing towards hyponatremia. (2) Acute hyponatremia: Plan: No severe symptoms of hyponatremia but patient having nausea and vomiting likely related to this. Prior admission for SIADH in 2018. Suspect the same this occasion although urine sodium, osmolality and serum osmolality are pending at this time. Unclear what her baseline sodium is therefore possibility of chronic remains. Restrict free water to 1 L, NaCl 1g BID depending on rate of correction. 100 ml hypertonic saline now, then repeat BMP. Aim for initial increase of 4 to 6 mEq/L. No more than 8-10 mEq/L in first 24 hours. Regarding SIADH patient is not on any medications identified to cause this (paxlovid essentially unknown), urine toxicology pending, will consider CT chest for small cell lung carcinoma, known association with COVID-19 makes this the most likely cause (3) Hypertension: Plan: Continue metoprolol and amlodipine home doses (4) Nausea and vomiting: Plan: Secondary to hyponatremia. Will re-evaluate following hypertonic saline Plan VTE Prophylaxis - Lovenox 40mg SQ daily Diet - regular, fluid restrict 1000ml Disposition - admit to PCU Admission and Anticipated Discharge Date Admission Date: July 31, 2022 History of Present Illness Chief Complaint: Nausea and vomiting Primary Care Provider: Mary Padilla DO Ana Cristina Noel is an 81-year-old female who presents to the ER today via EMS due t o nausea, weakness, cough. She reports initial flu-like symptoms started on Tuesday (5 days ago) initially with a dry cough and headache. She took a home test which was positive for COVID on Tuesday. She recently returned from [place] on July 02 for her grandsons wedding. Her is also positive for COVID but only has mild symptoms. She is fully vaccinated for COVID-19. She was prescribed Paxlovid which she has taken for the previous 2 days but did not take any today due to her nausea and vomiting. She reports recurrent problems with low sodium. In the [facility] electronic health record it appears she was admitted for hyponatremia in 2018 thought to be secondary to SIADH at that time due to a viral illness. She reports sometimes she can tell she has a low sodium if she is urinating a lot and she will drink some bouillon cubes and increase the salt in her diet. Regarding symptoms for hyponatremia she previously had a headache, dizziness, gait instability, nausea and vomiting. She denies any seizures, delirium, coma, shortness of breath, confusion, myoclonus, hyperreflexia or new muscle cramps. Regarding the nausea and vomiting she denies any abdominal pain, bright red blood in stool, melena, diarrhea or constipation. In the ER most notably has serum sodium level was 119. SARS-CoV-2 PCR positive. She was referred to medicine for admission ongoing management of hyponatremia. Allergies Allergy/AdvReac Type Severity Reaction Status Date / Time No Known Drug Allergies Allergy Unknown . Verified 04/08/17 09:11 Home Medications Medication Instructions Recorded Confirmed Type ATORVASTATIN (LIPITOR) 40 mg PO QPM #0 tabs 01/07/16 07/31/22 History CHOLECALCIFEROL (VITAMIN D3) 2,000 unit PO QAM ##0 01/07/16 07/31/22 History RALOXIFENE HCL (EVISTA) 60 mg PO DAILY #0 tabs 08/22/16 07/31/22 History Amlodipine (Norvasc) 2.5 mg PO QAM #0 tabs 04/08/17 07/31/22 History ELISA 128 1 drp OPB UD ##0 04/08/17 07/31/22 History Metoprolol Succinate (TOPROL XL) 25 mg PO BID #0 tabs 04/08/17 07/31/22 History POLYETHYLENE GLYCOL-PROPYLENE 1 drp ophthalmic (eye) QID PRN DRY 04/08/17 07/31/22 History (SYSTANE) EYES #0 mL buspirone 5 mg tablet 5 mg PO TID PRN Anxiety 07/31/22 07/31/22 History Past Med/Surg History Social History Smoking Status: Former smoker Cigarettes Per Day: Socially; Hx Alcohol Use: No Hx Substance Use: No Preferred Language: Sudanese Communication Ability: Effective Material Control Clerk Required: No Beliefs That Will Affect Care: None Current Living Situation: Spouse Feels Safe at Home: Yes Safety Concerns: Feels Safe At This Time Review of Systems Review of Systems: All systems reviewed & are unremarkable except as noted in Subjective Physical Exam Constitutional: WD/WN, vitals as above Eyes: PERRL, conjunctivae normal, anicteric sclerae ENMT: external ear and nose normal, oropharynx normal Neck: trachea midline, no thyromegaly Respiratory: normal respiratory effort, lungs clear to auscultation Cardiovascular: RRR, no murmur, no edema Gastrointestinal (Abdomen): normal bowel sounds, soft, nontender, no hepato splenomegaly Musculoskeletal: no cyanosis or clubbing, extremities motor strength 5/5 Neurologic: deep tendon reflexes 2+ bilaterally, moves all extremities and awake; no focal motor deficits and not confused Speech / Cognition: normal speech Motor/Sensory: no tremor and no pronator drift Psychiatric: A+Ox3, euthymic affect Results & Data Results & Data ([facility]) Vital Signs (Past 12 Hours) Vital Signs Temp Pulse Resp BP Pulse Ox O2 Del Method 07/31/22 08:15 83 19 97 07/31/22 08:15 147/73 H 07/31/22 07:30 78 20 94 07/31/22 07:30 150/76 H 07/31/22 07:00 80 20 07/31/22 07:00 148/77 H 07/31/22 06:30 79 19 07/31/22 06:30 156/73 H 07/31/22 06:24 83 31 H 95 07/31/22 06:42 79 18 97 Room Air 07/31/22 06:17 36.8 C 83 20 168/72 H 97 Room Air Laboratory Results Abnormal lab results 07/31/22 07/31/22 07/31/22 Range/Units 06:23 06:23 07:59 MCHC 36.9 H (32.0-36.0) g/dL RDW Std Deviation 36.0 L (36.4-46.3) fL Neut # (Auto) 6.75 H (1.4-6.5) K/uL Lymph # (Auto) 0.83 L (1.2-3.4) K/uL Rawlins # (Auto) 1.07 H (0.24-0.82) K/uL Sodium 119 L* (136-145) mmol/L Potassium 2.8 L (3.5-5.1) mmol/L Chloride 81 L (98-107) mmol/L Creatinine 0.47 L (0.6-1.2) mg/dl Glucose 138 H (70-99(Fasting)) mg/dl AST 45 H (13-39) U/L Urine Protein (Negative) Urine Ketones (Negative) Urine Blood (Negative) Urine RBC (Auto) (0-4) /hpf U Epithel Cells (Auto) (0-5) /lpf SARS-CoV-2, RNA, NAAT POSITIVE A* (NEGATIVE) 07/31/22 Range/Units 07:59 MCHC (32.0-36.0) g/dL RDW Std Deviation (36.4-46.3) fL Neut # (Auto) (1.4-6.5) K/uL Lymph # (Auto) (1.2-3.4) K/uL Rawlins # (Auto) (0.24-0.82) K/uL Sodium (136-145) mmol/L Potassium (3.5-5.1) mmol/L Chloride (98-107) mmol/L Creatinine (0.6-1.2) mg/dl Glucose (70-99(Fasting)) mg/dl AST (13-39) U/L Urine Protein 1+ H (Negative) Urine Ketones 1+ H (Negative) Urine Blood 1+ H (Negative) Urine RBC (Auto) 5-10 H (0-4) /hpf U Epithel Cells (Auto) >30 H (0-5) /lpf SARS-CoV-2, RNA, NAAT (NEGATIVE) Diagnostic Findings XR chest 1V portable CLINICAL HISTORY: Sepsis. COMPARISON STUDY: Chest radiograph September 14, 2016. FINDINGS: Lung volumes are normal. There is no consolidation. Calcified right lower lung granuloma is present There is no pneumothorax or pleural effusion. Cardiac size is normal. Mediastinal contours are normal. There is no evidence for pulmonary edema. IMPRESSION: No acute cardiopulmonary findings. ABDOMEN AND PELVIS CT WITH IV CONTRAST CT DOSE: 264.26 mGy.cm HISTORY: Acute generalized abdominal pain with nausea and vomiting. N/V TECHNIQUE: Multiaxial CT images of the abdomen and pelvis were performed following the IV administration of 90 cc of Optiray, A dose lowering technique was utilized adhering to the principles of ALARA. COMPARISON STUDY: CT abdomen and pelvis 10/09/2017 FINDINGS: Coronary artery calcifications. 2.9 cm thin-walled cystic focus of the basal left lower lobe is unchanged. Clear lung bases. No pneumatosis or pneumoperitoneum. Calcified granulomata of the spleen. Unremarkable adrenal glands. Cholecystectomy. Unremarkable pancreas. The liver is within normal limits. Patency of the hepatic and portal veins. Increased attenuation of the kidneys is symmetric and likely secondary to phase of imaging. Mild nonspecific bilateral perinephric stranding. Unremarkable urinary bladder. Hysterectomy. Atherosclerosis of the aorta without aneurysm. No lymphadenopathy. No bowel obstruction or bowel wall thickening. Colonic diverticulosis without acute diverticulitis. Normal appendix. No ascites or mesenteric inflammation. Unremarkable soft tissues. Degenerative changes of the spine, pelvis and hips. Multilevel central canal and neuroforaminal narrowing of the lumbar spine. Grade 1 anterolisthesis L4 on L5 is likely on a degenerative basis. Lumbar levoscoliosis. IMPRESSION: 1. No acute intra-abdominal or intrapelvic abnormality. 2. No bowel obstruction or bowel wall thickening. Normal appendix. 3. Colonic diverticulosis. 4. Cholecystectomy and hysterectomy. Medications Administered ER medications given: NSS 500 mL bolus (not given) Ondansetron 4 mg IV Potassium chloride 40 meq PO ECG Indication: toxicologic (Hyponatremia) Rate (beats per minute): 81 Rhythm: normal sinus Findings: + 1st degree AV block; no acute ischemic change Comparison ECG Date: from (September 16, 2016) Change: no significant change Code Status & VTE Plan Code Status Full VTE Prophylaxis Plan VTE Prophylaxis will be ordered: Yes PG Care Time/CCT Total # of Minutes Spent Total Time Spent with Patient: Total time spent is greater than 50% in coordination of care (as documented) at patient's floor/unit and/or counseling patient: Coding Level of Care Code 32429 Initial Inpt Care Lvl 3 Diagnoses COVID-19 U07.1 Acute hyponatremia E87.1 Hypertension I10 Nausea and vomiting R11.2
[2022-07-31] MEDS ORDERED: STAT IV STA ×2 (09:25→11:46)
[2022-07-31] MEDS ORDERED: SODIUM CHLORIDE 3 % 100 ML IV ONE ×2 (09:25→11:46)
[2022-07-31 11:02] LABS: BUN Creatinine Ratio 12.5 (10-20); Calcium 8.8 mg/dl (8.5-10.1); Creatinine Clr Calc Pharmacy 73.8 ml/min; Est GFR (African American) 105.9 ml/min; Est GFR (Non-African American) 91.4 ml/min; Potassium 3.2 mmol/L (3.5-5.1)
[2022-07-31] MEDS ORDERED: ACETAMINOPHEN 325 MG TAB PO PRN (11:38)
[2022-07-31] MEDS: amLODIPine BESYLATE 5 MG TAB PO SCH (14:09)
[2022-07-31 14:44] LABS: BUN Creatinine Ratio 10.9 (10-20); Calcium 8.8 mg/dl (8.5-10.1); Est GFR (African American) 107.4 ml/min; Est GFR (Non-African American) 92.6 ml/min; Potassium 3.4 mmol/L (3.5-5.1)
[2022-07-31 18:31] LABS: BUN Creatinine Ratio 11.1 (10-20); Calcium 8.7 mg/dl (8.5-10.1); Creatinine Clr Calc Pharmacy 65.6 ml/min; Est GFR (African American) 101.9 ml/min; Est GFR (Non-African American) 87.9 ml/min; Potassium 3.8 mmol/L (3.5-5.1)
[2022-07-31] MEDS ORDERED: INSULIN HUMAN REGULAR PER UNIT 5 UNITS in SYRINGE 0 ML IV STA (18:41)
[2022-07-31] MEDS ORDERED: MoRPHine SULFATE 2 MG/ML CARP IV STA (18:43)
[2022-07-31] MEDS: ENOXAPARIN INJ 40 MG/0.4 ML SYR SQ SCH (20:42)
[2022-07-31] MEDS: METOPROLOL SUCC 25MG EXT REL TAB PO SCH (20:42)
[2022-07-31] MEDS: ATORVASTATIN 40 MG TAB PO SCH (20:42)
[2022-07-31 23:01] LABS: BUN Creatinine Ratio 11.7 (10-20); Calcium 8.7 mg/dl (8.5-10.1); Est GFR (African American) 98.4 ml/min; Est GFR (Non-African American) 84.9 ml/min; Potassium 3.4 mmol/L (3.5-5.1)
[2022-08-01 02:09] LABS: Basophils # (auto) 0.02 K/uL (0-0.2); Basophils % (auto) 0.2 %; Hematocrit (blood only) 40.1 % (34.1-44.9); Hemoglobin 14.5 g/dl (12.0-16.0); Immature Granulocytes # (auto) 0.03 K/uL (0.00-0.02); Immature Granulocytes % (auto) 0.3 %; Lymphocytes % (auto) 16.8 %; Mean Corpuscular Hemoglobin 30.1 pg (25.0-34.0); Mean Corpuscular Hgb Conc 36.2 g/dL (32.0-36.0); Mean Corpuscular Volume 83.2 fL (80.0-100.0); Mean Platelet Volume 9.7 fL (9.4-12.3); Monocytes # (auto) 1.26 K/uL (0.24-0.82); Monocytes % (auto) 12.4 %; Neutrophils # (auto) 7.12 K/uL (1.4-6.5); Neutrophils % (auto) 70.3 %; Platelet Count 217 K/uL (130-400); RDW Coefficient of Variation 12.1 % (11.5-14.5); RDW Standard Deviation 36.9 fL (36.4-46.3); Red Blood Count 4.82 M/uL (3.93-5.22); White Blood Count 10.13 K/ul (4.8-10.8)
[2022-08-01 02:26] LABS: BUN Creatinine Ratio 12.3 (10-20); Calcium 8.7 mg/dl (8.5-10.1); Creatinine Clr Calc Pharmacy 54.5 ml/min; Est GFR (African American) 95.8 ml/min; Est GFR (Non-African American) 82.7 ml/min; Potassium 3.5 mmol/L (3.5-5.1)
[2022-08-01 07:12] LABS: BUN Creatinine Ratio 15.3 (10-20); Calcium 8.8 mg/dl (8.5-10.1); Creatinine Clr Calc Pharmacy 57.9 ml/min; Est GFR (African American) 98.9 ml/min; Est GFR (Non-African American) 85.4 ml/min; Potassium 3.4 mmol/L (3.5-5.1)
[2022-08-01] MEDS ORDERED: POTASSIUM CHLORIDE CRTAB 20 MEQ TABCR PO STA (07:21)
[2022-08-01] MEDS: METOPROLOL SUCC 25MG EXT REL TAB PO SCH ×2 (08:29→20:31)
[2022-08-01] MEDS: amLODIPine BESYLATE 5 MG TAB PO SCH (08:30)
[2022-08-01 10:22] LABS: BUN Creatinine Ratio 16.2 (10-20); Creatinine Clr Calc Pharmacy 50.2 ml/min; Est GFR (African American) 94.4 ml/min; Est GFR (Non-African American) 81.5 ml/min; Potassium 3.5 mmol/L (3.5-5.1)
[2022-08-01] MEDS ORDERED: SODIUM CHLORIDE 3 % 50 ML IV ONE (11:51)
[2022-08-01] MEDS ORDERED: STAT IV STA (11:51)
[2022-08-01] MEDS: SODIUM CHLORIDE 1 GM TABLET PO SCH ×2 (12:40→20:31)
[2022-08-01 14:52] LABS: BUN Creatinine Ratio 16.9 (10-20); Creatinine Clr Calc Pharmacy 44.4 ml/min; Est GFR (African American) 83.3 ml/min; Est GFR (Non-African American) 71.9 ml/min; Potassium 3.6 mmol/L (3.5-5.1)
--- NOTE | 2022-08-01 16:21 | Hospitalist Progress Note ---
Date of Service August 01, 2022 Assessment & Plan (1) COVID-19: Plan: Will defer any medications for this given severe hyponatremia and patient is not hypoxic. Stop Paxlovid as unknown if contributing towards hyponatremia. COVID isolation precautions (2) Acute hyponatremia: Plan: No severe symptoms of hyponatremia. Symptoms of nasuea, vomiting, confusion and gait instability on admission. Now resolved. Urine osm/Na suggestive of SIADH. Continue to restrict free water to 1 L, Na decreased to 124 fron 127 this morning therefore NaCl 1g PO BID started and 50ml hypertonic saline given. Repeat Na 127, now 128. Continue BMP q6h overnight. Additional 50ml hypertonic saline if sodium drops again. SIADH acute on chronic suspect secondary to COVID, no further workup required at this time. (3) Hypertension: Plan: Continue metoprolol and amlodipine home doses (4) Nausea and vomiting: Plan: Now resolved. Secondary to hyponatremia. Plan VTE Prophylaxis - Lovenox 40mg SQ daily Diet - regular, fluid restrict 1000ml Disposition - admit to PCU Admission and Anticipated Discharge Date Admission Date: July 31, 2022 Subjective Vast improvement from admission. No further nausea and vomiting. With hindsight she was confused yesterday and appears much more alert today. No gait insta bility. No chest pain, shortness of breath, loss of taste or smell, cough or nasal congestion. Review of Systems Review of Systems: All systems reviewed & are unremarkable except as noted in Subjective Physical Exam Constitutional: WD/WN, vitals as above Respiratory: normal respiratory effort, lungs clear to auscultation Cardiovascular: RRR, no murmur, no edema Gastrointestinal (Abdomen): normal bowel sounds, soft, nontender, no hepatosplenomegaly Musculoskeletal: no cyanosis or clubbing, extremities motor strength 5/5 Neurologic: moves all extremities and awake; no focal motor deficits and not confused Speech / Cognition: normal speech Motor/Sensory: no tremor and no pronator drift Psychiatric: A+Ox3, euthymic affect Results & Data Results & Data ([facility]) Vital Signs (Past 12 Hours) Vital Signs Temp Pulse Pulse Resp BP Pulse Ox O2 Del Method 08/01/22 15:42 69 08/01/22 13:00 130/59 L 08/01/22 08:00 Room Air 08/01/22 12:00 36.8 C 71 18 152/74 H 97 08/01/22 08:00 36.8 C 66 18 148/65 H 97 PG Care Time/CCT Total # of Minutes Spent Total Time Spent with Patient: Total time spent is greater than 50% in coordination of care (as documented) at patient's floor/unit and/or counseling patient: Coding Level of Care Code 81076 Subseq Hosp Care Lvl 2 Diagnoses COVID-19 U07.1 Acute hyponatremia E87.1 Hypertension I10 Nausea and vomiting R11.2
[2022-08-01 19:22] LABS: BUN Creatinine Ratio 17.9 (10-20); Calcium 9.4 mg/dl (8.5-10.1); Creatinine Clr Calc Pharmacy 43.8 ml/min; Est GFR (African American) 82.1 ml/min; Est GFR (Non-African American) 70.8 ml/min
[2022-08-01] MEDS: ENOXAPARIN INJ 40 MG/0.4 ML SYR SQ SCH (20:31)
[2022-08-01] MEDS: ATORVASTATIN 40 MG TAB PO SCH (20:31)
--- NOTE | 2022-08-01 20:37 | Electrocardiogram Report ---
Test Reason : Blood Pressure : / mmHG Vent. Rate : 081 BPM Atrial Rate : 081 BPM P-R Int : 240 ms QRS Dur : 082 ms QT Int : 384 ms P-R-T Axes : 054 029 058 degrees QTc Int : 446 ms Poor data quality, interpretation may be adversely affected Sinus rhythm with 1st degree A-V block Otherwise normal ECG When compared with ECG of 16-SEP-2016 09:46, No significant change was found Confirmed by Lance Andrade ([id number]) on 08/01/2022 8:37:10 PM Referred By: REFERRED SELF Confirmed By:Lance Andrade
[2022-08-02 01:04] LABS: BUN Creatinine Ratio 23.2 (10-20); Calcium 8.7 mg/dl (8.5-10.1); Est GFR (African American) 100.6 ml/min; Est GFR (Non-African American) 86.8 ml/min; Potassium 4.1 mmol/L (3.5-5.1)
[2022-08-02 08:07] LABS: BUN Creatinine Ratio 16.9 (10-20); Calcium 8.7 mg/dl (8.5-10.1); Creatinine Clr Calc Pharmacy 59.1 ml/min; Est GFR (African American) 98.9 ml/min; Est GFR (Non-African American) 85.4 ml/min; Potassium 3.9 mmol/L (3.5-5.1)
[2022-08-02] MEDS: SODIUM CHLORIDE 1 GM TABLET PO SCH ×2 (09:00→20:04)
[2022-08-02] MEDS: amLODIPine BESYLATE 5 MG TAB PO SCH (09:00)
[2022-08-02] MEDS: METOPROLOL SUCC 25MG EXT REL TAB PO SCH ×2 (09:00→20:04)
[2022-08-02 12:29] LABS: BUN Creatinine Ratio 18.5 (10-20); Calcium 9.1 mg/dl (8.5-10.1); Creatinine Clr Calc Pharmacy 53.7 ml/min; Est GFR (African American) 95.8 ml/min; Est GFR (Non-African American) 82.7 ml/min; Potassium 4.3 mmol/L (3.5-5.1)
[2022-08-02] MEDS ORDERED: STAT IV STA (12:44)
[2022-08-02] MEDS ORDERED: SODIUM CHLORIDE 3 % 50 ML IV ONE (12:44)
[2022-08-02] MEDS ORDERED: SODIUM CHLORIDE 1 GM TABLET PO SCH (14:00)
[2022-08-02 18:31] LABS: Calcium 8.9 mg/dl (8.5-10.1); Creatinine Clr Calc Pharmacy 43.6 ml/min; Est GFR (African American) 79.6 ml/min; Est GFR (Non-African American) 68.7 ml/min; Potassium 4.2 mmol/L (3.5-5.1)
[2022-08-02] MEDS: ENOXAPARIN INJ 40 MG/0.4 ML SYR SQ SCH (20:03)
[2022-08-02] MEDS: ATORVASTATIN 40 MG TAB PO SCH (20:05)
--- NOTE | 2022-08-02 20:48 | Hospitalist Progress Note ---
Date of Service August 02, 2022 Assessment & Plan (1) COVID-19: Plan: Will defer any medications for this given severe hyponatremia and patient is not hypoxic. Stop Paxlovid as unknown if contributing towards hyponatremia. COVID isolation precautions (2) Acute hyponatremia: Plan: No severe symptoms of hyponatremia. Symptoms of nausea, vomiting, confusion and gait instability on admission. Now resolved. Urine osm/Na suggestive of SIADH. Continue to restrict free water to 1 L, sodium appears stable around 127-129 however not significantly improving. 50 mL of hypertonic saline given and sodium improved to 130. We will increase her sodium chloride tablets to 2 g twice daily and repeat BMP in a.m. if sodium remains around 130 plan is to discharge her at that time. SIADH acute on chronic suspect secondary to COVID, no further workup required at this time. (3) Hypertension: Plan: Continue metoprolol and amlodipine home doses (4) Nausea and vomiting: Plan: Now resolved. Secondary to hyponatremia. Plan VTE Prophylaxis - Lovenox 40mg SQ daily Diet - regular, fluid restrict 1000ml Disposition -stable for downgrade to [facility] Admission and Anticipated Discharge Date Admission Date: July 31, 2022 Subjective Improving cough. No other significant COVID symptoms. No nausea, vomiting, gait instability or confusion. Updated her over the phone. Review of Systems Review of Systems: All systems reviewed & are unremarkable except as noted in Subjective Physical Exam Constitutional: WD/WN, vitals as above Respiratory: normal respiratory effort, lungs clear to auscultation Cardiovascular: RRR, no murmur, no edema Gastrointestinal (Abdomen): normal bowel sounds, soft, nontender, no hepatosplenomegaly Musculoskeletal: no cyanosis or clubbing, extremities motor strength 5/5 Neurologic: moves all extremities and awake; no focal motor deficits and not confused Speech / Cognition: normal speech Motor/Sensory: no tremor and no pronator drift Psychiatric: A+Ox3, euthymic affect Results & Data Results & Data ([facility]) Vital Signs (Past 12 Hours) Vital Signs Temp Pulse Pulse Pulse Resp BP BP 08/02/22 19:15 08/02/22 19:14 36.9 C 89 18 135/76 08/02/22 14:15 71 08/02/22 12:11 36.6 C 78 19 113/56 L Pulse Ox O2 Del Method 08/02/22 19:15 Room Air 08/02/22 19:14 96 Room Air 08/02/22 14:15 08/02/22 12:11 97 Room Air PG Care Time/CCT Total # of Minutes Spent Total Time Spent with Patient: Total time spent is greater than 50% in coordination of care (as documented) at patient's floor/unit and/or counseling patient: Coding Level of Care Code 84329 Subseq Hosp Care Lvl 2 Diagnoses COVID-19 U07.1 Acute hyponatremia E87.1 Hypertension I10 Nausea and vomiting R11.2
[2022-08-03 07:48] LABS: BUN Creatinine Ratio 17.7 (10-20); Calcium 8.9 mg/dl (8.5-10.1); Creatinine Clr Calc Pharmacy 56.3 ml/min; Est GFR (African American) 97.3 ml/min; Potassium 3.8 mmol/L (3.5-5.1)
[2022-08-03] MEDS: amLODIPine BESYLATE 5 MG TAB PO SCH (09:15)
[2022-08-03] MEDS: METOPROLOL SUCC 25MG EXT REL TAB PO SCH (09:16)
[2022-08-03] MEDS: SODIUM CHLORIDE 1 GM TABLET PO SCH (09:16)
--- NOTE | 2022-08-03 10:13 | Discharge Summary ---
Date of Service August 03, 2022 Admission HPI Per Admitting Provider Ana Cristina Noel is an 81-year-old female who presents to the ER today via EMS due to nausea, weakness, cough. She reports initial flu-like symptoms started on Tuesday (5 days ago) initially with a dry cough and headache. She took a home test which was positive for COVID on Tuesday. She recently returned from [place] on July 02 for her grandsons wedding. Her is also positive for COVID but only has mild symptoms. She is fully vaccinated for COVID-19. She was prescribed Paxlovid which she has taken for the previous 2 days but did not take any today due to her nausea and vomiting. She reports recurrent problems with low sodium. In the [facility] electronic health record it appears she was admitted for hyponatremia in 2018 thought to be secondary to SIADH at that time due to a viral illness. She reports sometimes she can tell she has a low sodium if she is urinating a lot and she will drink some bouillon cubes and increase the salt in her diet. Regarding symptoms for hyponatremia she previously had a headache, dizziness, gait instability, nausea and vomiting. She denies any seizures, delirium, coma, shortness of breath, confusion, myoclonus, hyperreflexia or new muscle cramps. Regarding the nausea and vomiting she denies any abdominal pain, bright red blood in stool, melena, diarrhea or constipation. In the ER most notably has serum sodium level was 119. SARS-CoV-2 PCR positive. She was referred to medicine for admission ongoing management of hyponatremia. Principal Diagnosis Syndrome of inappropriate antidiuretic hormone COVID-19 Discharge Exam Constitutional WD/WN, vitals as above Eyes PERRL, conjunctivae normal, anicteric sclerae ENMT external ear and nose normal, oropharynx normal Neck trachea midline, no thyromegaly Respiratory normal respiratory effort, lungs clear to auscultation Cardiovascular RRR, no murmur, no edema Gastrointestinal (Abdomen) normal bowel sounds, soft, nontender, no hepatosplenomegaly Musculoskeletal no cyanosis or clubbing, extremities motor strength 5/5 Neurologic deep tendon reflexes 2+ bilaterally, moves all extremities and awake; no focal motor deficits and not confused Speech / Cognition: normal speech Motor/Sensory: no tremor and no pronator drift Psychiatric A+Ox3, euthymic affect Discharge Data Allergies Allergy/AdvReac Type Severity Reaction Status Date / Time No Known Drug Allergies Allergy Unknown . Verified 08/12/22 13:36 Consultations 07/31/22 08:37 ED Decision to Admit Stat Ordered Studies 07/31/22 06:50 CT Abd and Pelvis [CT abd pelvis IV con only] Stat IMPRESSION: 1. No acute intra-abdominal or intrapelvic abnormality. 2. No bowel obstruction or bowel wall thickening. Normal appendix. 3. Colonic diverticulosis. 4. Cholecystectomy and hysterectomy. Hospital Course (1) COVID-19: Ana Cristina Noel is an 82 year old admitted to [facility] from July 31 to August 03, 2022 due to acute confusion and gait instability. She was diagnosed with COVID-19 which caused syndrome of inappropriate antidiuretic hormone leading to hyponatremia. Sodium level 119 on admission. This was treated with a fluid restriction of 1 L, intravenous hypertonic saline boluses and salt tablets. Sodium improved from 119 to 133 on discharge. She should continue on 1 L/day fluid restriction and sodium chloride tabs 2 g twice a day. Recommend repeat labs in 1 week with follow-up with her primary care provider. She should continue to isolate per CDC guidance. https://www.cdc.gov/coronavirus/2019-ncov/your-health/isolation.html Buspirone discontinued due to SIADH however since she is not taking this do not think it is contributing. (2) Acute hyponatremia: (3) Hypertension: (4) Nausea and vomiting: Total Time Total Time Spent Total Time Spent (In Minutes): 40 Discharge Plan Discharge Items Patient Disposition: Home - Self-Care Reason For Visit: SEVERE HYPONATREMIA Discharge Diagnosis: Syndrome of inappropriate antidiuretic hormone COVID-19 Activity: Resume your previous activity Non-emergency contact: Primary Care Provider Call non-emergency contact if: you have any medication questions and your symptoms worsen Follow-up/Referrals: Mary Padilla DO [Primary Care Provider] - 08/10/22 8:30 am (APPT WITH JJ CARO MD ) Diet: Regular Fluids: 1000ml (4 cups) Addtl Attending Provider Instructions: You were admitted to [facility] from July 31 to August 03, 2022 due to acute confusion and gait instability. You were diagnosed with COVID-19 which caused a syndrome of inappropriate antidiuretic hormone leading to low sodium levels. This was treated with a fluid restriction of 1 L, intravenous hypertonic saline boluses and salt tablets. Sodium improved from 119-133 on discharge. Please continue on 1 L/day fluid restriction and sodium chloride tabs 2 g twice a day. Recommend repeat labs in 1 week with follow-up with your primary care provider. Please continue to isolate per CDC guidance. https://www.cdc.gov/coronavirus/2019-ncov/your-health/isolation.html Recommend not taking buspirone as this can cause your sodium levels to decrease. Pending Studies at Discharge: No Stand-Alone Forms: My [facility], Smoking Cessation Medications and DC Order Prescriptions: Discontinued buspirone [BuSpar] 5 mg Tablet 5 mg PO TID PRN (Reason: Anxiety) No Action cefdinir 300 mg capsule 300 mg PO BID Qty: 14 0RF amlodipine 2.5 mg tablet 2.5 mg PO DAILY buspirone 5 mg tablet 5 mg PO TID PRN metoprolol tartrate 25 mg tablet 25 mg PO BID Adrian 128 2 % drops 1 drp ophthalmic (eye) BID raloxifene 60 mg tablet 60 mg PO DAILY cholecalciferol (vitamin D3) 50 mcg (2,000 unit) capsule 50 mcg PO DAILY atorvastatin 20 mg tablet 40 mg PO DAILY coenzyme Q10 100 mg capsule 200 mg PO DAILY Metamucil (sugar) Powder 1 tbsp PO BID PRN sodium chloride 1 gram tablet 2,000 mg PO DAILY Discharge Orders: Discharge Order (Routine); Ordered 08/03/22 Ordered By: Herrera Sommer/Other Patient Handouts: COVID-19 Home Care, Hyponatremia Dc Admission Data Admit Date/Time: 07/31/22 08:45 Attending Provider: Herrera Rollins Admit Provider: Herrera Rollins Primary Care Provider: Mary Padilla Other Providers: Herrera Rollins Other Interventions: Discharge Summary Assessment (RN) Last Done: 08/03/22 10:24 Coding Level of Care Code D/C DAY MANAGEMENT >30 MINS Diagnoses COVID-19 U07.1 Acute hyponatremia E87.1 Hypertension I10 Nausea and vomiting R11.2
== END 2022-08-03 11:18 | disposition home or self-care (01) | DRG 178 ==
LOC: ED 06:05 → 2E 08:45 → 3E 08-02 19:16
DX: Z87.891 Personal history of nicotine dependence; E22.2 Syndrome of inappropriate secretion of antidiuretic hormone; E87.8 Other disorders of electrolyte and fluid balance, not elsewhere classified; E87.6 Hypokalemia; U07.1 COVID-19; Z79.82 Long term (current) use of aspirin; I44.0 Atrioventricular block, first degree